=== PATIENT | female | born 1970 | race American Indian/Alaskan Native ===

== ENCOUNTER 2018-11-12 21:57 | Inpatient (IN) | payer MEDICAID ==
[2018-11-12 21:57] VITALS: BMI 18.4
[2018-11-12] MEDS ORDERED: Sodium Chloride 0.9% 1,000 ML IV ONE (23:05)
[2018-11-12] MEDS ORDERED: Sodium Chloride 0.9% 1,000 ML ONE (23:17)
[2018-11-12 23:24] LABS: BASO # 0.1 K/uL (0.0-0.2); HEMOGLOBIN 13.1 g/dL (11.0-16.0); MEAN CORPUSCULAR HGB CONC 33.8 g/dL (33.0-37.0); MONO # 0.9 K/uL (0.0-0.8); RBC 4.51 Mil/uL (3.80-5.20)
[2018-11-12 23:29] LABS: BASO % 0.9 % (0.0-2.0); EOS # 0.1 K/uL (0.0-0.7); EOS % 1.7 % (0.0-4.0); LYMPH # 3.1 K/uL (1.0-4.3); MEAN CELL VOLUME 86.2 fL (81.0-99.0); MEAN CORPUSCULAR HEMOGLOBIN 29.1 pg (27.0-31.0); MONO % 11.4 % (0.0-10.0); NEUT # 3.5 K/uL (1.8-7.0); NRBC % 0.2 % (0.0-2.0); RED CELL DISTRIBUTION WIDTH 14.4 % (11.5-14.5); WHITE BLOOD COUNT 7.7 K/uL (4.8-10.8)
--- NOTE | 2018-11-12 23:38 | C.PDOC ---
History Of Present Illness 48-year-old female is brought in by ambulance from residential at the insistence of her daughter for sacral decubitus ulcer for over a year. Patient has not spoken with her PMD Dr. Cooper. Patient's wound has been healing appropriately per wound care note, was last treated for this wound with antibiotics in July 2018. Patient is bedbound due to MS, CVA, history of cigarettes and cocaine abuse. Time Seen by Provider: 11/12/18 22:48 Chief Complaint (Nursing): Abnormal Skin Integrity History Per: Patient History/Exam Limitations: no limitations Onset/Duration Of Symptoms: Other (1 year) Current Symptoms Are (Timing): Still Present Location Of Injury: Posterior: Back Quality Of Symptoms: Other (ulcer) Past Medical History Reviewed: Historical Data, Nursing Documentation, Vital Signs Vital Signs: Last Vital Signs Temp 98.9 F 11/12/18 22:10 Pulse 103 H 11/12/18 22:10 Resp 20 11/12/18 22:10 BP 89/60 L 11/12/18 22:10 Pulse Ox 98 11/12/18 22:10 - Medical History PMH: Alzheimer's Disease, Arthritis, Asthma, COPD, CVA, Multiple Sclerosis, Seizures (Convulsions) Denies: Anemia, Anxiety, Bipolar Disorder, Bronchitis, Cardia Arrhythmia, CHF, Crohn's Disease, Dementia, Depression, Diverticulitis, Emphysema, Fibromyalgia, Fractures, Gastrointestinal Ulcer, Gall Bladder Disease, HIV, HTN, Hypercholesterolemia, Hyperthyroidism, Hypothyroidism, Kidney Stones, Migraine, Mitral Valve Prolapse, Osteoporosis, Pancreatitis, Paranoia, Parkinson's Disease, Peripheral Edema, Pneumonia, Post Traumatic Stress Disorder, Chronic Kidney Disease, Rheumatoid Arthritis, Schizophrenia, Sickle Cell Disease, Sexually Transmitted Disease, Sleep Apnea, TIA Surgical History: No Surg Hx Denies: Appendectomy, Cholecystectomy, Coronary Stent, Pacemaker - [facility] Procedures EXCISION OF LEFT HIP MUSCLE, OPEN APPROACH (10/31/15) INJECT/INFUSE NEC (08/13/14) INSERT INDWELLING CATH (08/13/14) Family History: States: No Known Family Hx - Social History Hx Tobacco Use: Yes Hx Alcohol Use: No (used to) Hx Substance Use: Yes (cocaine) - Immunization History Hx Tetanus Toxoid Vaccination: No Review Of Systems Except As Marked, All Systems Reviewed And Found Negative. Constitutional: Negative for: Fever, Chills Cardiovascular: Negative for: Chest Pain Respiratory: Negative for: Cough, Shortness of Breath Gastrointestinal: Negative for: Nausea, Vomiting, Abdominal Pain, Diarrhea Skin: Positive for: Other (ulcer) Physical Exam - Physical Exam Appears: Non-toxic, No Acute Distress, Other (contracted) Skin: Other (2x2cm sacral decubitus stage 3, no discharge/foul smell. Stage 1 decubitus ulcer to b/l buttocks. ) Head: Atraumatic, Normacephalic Eye(s): bilateral: Normal Inspection, PERRL, EOMI Nose: Normal Oral Mucosa: Moist Neck: Normal, Supple Chest: Symmetrical, No Tenderness Cardiovascular: Rhythm Regular, No Murmur Respiratory: Normal Breath Sounds, No Rales, No Rhonchi, No Wheezing Gastrointestinal/Abdominal: Soft, No Tenderness, No Guarding, No Rebound Neurological/Psych: Oriented x3 ED Course And Treatment - Laboratory Results Result Diagrams: 11/14/18 06:29 11/13/18 00:53 Lab Interpretation: Normal ECG: Interpreted By Me ECG Rhythm: Sinus Rhythm ECG Interpretation: Normal Rate From EC O2 Sat by Pulse Oximetry: 98 Pulse Ox Interpretation: Normal - Radiology CXR: Interpreted by [facility] CXR Interpretation: Yes: No Acute Disease Reevaluation Time: 00:00 Reassessment Condition: Improved - Physician Consult Information Outcome Of Conversation: [id number]: d/w Dr. Cooper, PMD, ok to admit. start rocephin Medical Decision Making Medical Decision Making: chronic decubitus ulcers, buttock approx > 1 year no acute infection no s/s of sepsis prior successful tx w rocephin/Keflex restarted per Dr. Cooper Plan: EKG Chemistry Hematology CXR NaCl IV Fluids Ultram 50mg PO Rocephin Blood Culture Urinalysis Disposition Doctor Will See Patient In The: Hospital Counseled Patient/Family Regarding: Studies Performed, Diagnosis - Disposition Disposition: HOSPITALIZED Disposition Time: 23:38 Condition: GOOD - Clinical Impression Clinical Impression: Decubitus skin ulcer - Scribe Statement The provider has reviewed the documentation as recorded by the Scribe (Navarro Altamirano) Provider Attestation: All medical record entries made by the Scribe were at my direction and personally dictated by me. I have reviewed the chart and agree that the record accurately reflects my personal performance of the history, physical exam, medical decision making, and the department course for this patient. I have also personally directed, reviewed, and agree with the discharge instructions and disposition.
[2018-11-12] MEDS ORDERED: cefTRIAXone IV 1 gm in Dextros 50 ML IV ONE (23:44)
[2018-11-12 23:49] LABS: INR 1.1; PROTHROMBIN TIME 11.9 SECONDS (9.7-12.2)
[2018-11-13 01:19] LABS: ALB/GLOB RATIO 0.9 (1.0-2.1); ALBUMIN 3.8 g/dL (3.5-5.0); ALT/SGPT 8 U/L (9-52); AST/SGOT 19 U/L (14-36); BLOOD UREA NITROGEN 11 mg/dL (7-17); CALCIUM 9.6 mg/dl (8.6-10.4); GFR NON-AFRICAN AMERICAN > 60
[2018-11-13] MEDS ORDERED: Albuterol-Ipratrop 3 mg / 0.5 (3 ml) UD IH PRN (06:24)
--- NOTE | 2018-11-13 08:25 | RAD ---
Chest x-ray single frontal view HISTORY: Bedsores. COMPARISON: None available. FINDINGS: No focal infiltrate or effusion. Tortuous ectatic aorta. Top normal heart size. Opacity projects over the bilateral heart, nonspecific, possibly external. Repeat study with dedicated PA and lateral view is recommended for further evaluation. Degenerative changes in the spine. Impression: Opacity projects over the bilateral heart, nonspecific, possibly external. Repeat study with dedicated PA and lateral view is recommended for further evaluation. No focal infiltrate or effusion. Tortuous ectatic aorta.
[2018-11-13] MEDS ORDERED: Pantoprazole 40 mg EC Tab PO SCH (10:00)
[2018-11-13] MEDS ORDERED: INTERFERON BETA 30 MCG IM SCH (10:00)
[2018-11-13] MEDS: Enoxaparin 40 mg Syringe SC SCH (10:07)
[2018-11-13] MEDS: Divalproex 125 mg DR Tab PO SCH ×2 (10:08→18:25)
[2018-11-13] MEDS: levETIRAcetam 100 mg/ml (5ml) Oral Syringe PO SCH ×2 (13:49→18:32)
[2018-11-13] MEDS: Valproic Acid 250 mg/5 ml UD Cup PO SCH (18:32)
[2018-11-14 02:57] LABS: SQUAMOUS EPITHIAL 16 /hpf (0-5); URINE BACTERIA RARE (<OCC)
[2018-11-14 02:59] LABS: URINE BILIRUBIN NEGATIVE (NEGATIVE); URINE CLARITY Clear (Clear); URINE COLOR YELLOW (YELLOW); URINE GLUCOSE (UA) NEGATIVE (Normal)
[2018-11-14 03:00] LABS: URINE BLOOD NEGATIVE (NEGATIVE); URINE LEUKOCYTE ESTERASE NEGATIVE Leu/uL (Negative); URINE PROTEIN NEGATIVE (NEGATIVE); URINE UROBILINOGEN 0.2 mg/dL (0.2-1.0)
--- NOTE | 2018-11-14 05:18 | HP ---
The patient is a 48-year-old female. The patient was seen and examined at the bedside on 11/13/2018. CHIEF COMPLAINT: Sacral decubitus ulcer. HISTORY OF PRESENT ILLNESS: Ms. Mariela Post is a 48-year-old female, resident of [facility], brought by the ambulance from [facility] at insistence of her daughter for sacral decubitus ulcer for over a year as per daughter. The patient has not spoken. The patient has language problem. The patient got antibiotic course in 07/2018. The patient has history of MS, CVA, history of smoking cocaine abuse, contracture of the lower extremities, history of seizures. PAST MEDICAL HISTORY: Dementia, arthritis, asthma, COPD, CVA, multiple sclerosis, seizures, convulsion, history of diverticulitis, emphysema, fibromyalgia. FAMILY HISTORY: Father and mother, noncontributory. As per daughter, the patient has one daughter and two sons. SOCIAL HISTORY: History of tobacco abuse. She has alcohol abuse. Substance abuse, used to use cocaine. REVIEW OF SYSTEMS: The patient is seen and examined at the bedside. Looking comfortable. No fever. No chills. No hematuria or hematochezia. No headache or dizziness. No chest pain. No palpitation. PHYSICAL EXAMINATION: VITAL SIGNS: Temperature 97.5, pulse 97, blood pressure 94/53, respiratory rate 20. HEENT: Head: Normocephalic and atraumatic. Eyes: PERRLA. Extraocular muscles intact. Conjunctivae clear. Nose patent. NECK: Supple. No carotid bruits, JVD, or thyromegaly. CHEST: Bilateral symmetrical. HEART: S1 and S2 positive. LUNGS: Clear to auscultation. ABDOMEN: Soft. Bowel sounds positive. No organomegaly. EXTREMITIES: Positive contracture in the lower extremities. No edema. No cyanosis. SKIN: Has 2 x 2 cm sacral decubitus ulcer, stage III in the center, and there is small decubitus ulcer found in the sides. No discharge or foul smelling stage I decubitus ulcers bilaterally. LABORATORY DATA: White blood cell 7.7, hemoglobin 13.1, hematocrit 38.9, platelets 270. Sodium 136, potassium 4.3, BUN 11, creatinine 0.6, glucose 81. ASSESSMENT AND PLAN: Ms. Mariela Post is a 48-year-old female with history of multiple sclerosis, dementia, arthritis, asthma, chronic obstructive pulmonary disease, cerebrovascular accident, seizures, convulsions. Resident of [facility]. Has decubitus ulcers. There is 2 x 2 cm sacral decubitus ulcer stage III. No discharge of foul smelling stage I decubitus ulcers bilaterally on the buttocks. Length of time discussion done with the patient's daughter on the bedside and nurse. The patient is seen by Infectious Disease, Dr. Kush Freeman. Would consult with the surgical team Dr. Ray. Restarted the patient on Aricept, ceftriaxone, Celebrex, valproic acid, Depakote, Avonex, Keppra, baclofen. The patient is getting Lovenox for deep venous thrombosis prophylaxis, Periactin, Protonix for gastrointestinal prophylaxis. Getting antibiotics, Rocephin. Repeat labs. We will follow up. Joanna Cooper MD
[2018-11-14 06:41] LABS: HEMOGLOBIN 13.5 g/dL (11.0-16.0); MEAN CELL VOLUME 86.4 fL (81.0-99.0); MEAN CORPUSCULAR HEMOGLOBIN 28.8 pg (27.0-31.0); MEAN CORPUSCULAR HGB CONC 33.3 g/dL (33.0-37.0); MEAN PLATELET VOLUME 9.2 fL (7.2-11.7); RBC 4.67 Mil/uL (3.80-5.20); RED CELL DISTRIBUTION WIDTH 14.4 % (11.5-14.5); WHITE BLOOD COUNT 7.7 K/uL (4.8-10.8)
--- NOTE | 2018-11-14 07:26 | CP.PCM.CON ---
<Adolfo Azar - Last Filed: 11/14/18 07:29> History of Present Illness - History of Present Illness History of Present Illness: Surgery: Dr. Ray Reason for consult: sacral wound HPI: Patient is a 48 y/ female with significant pmx for bedbound due to MS, CVA, altered mental status presents from long term at the request of daughter for evaluation of sacral wounds. Daughter not bedside at time of examine most of history obtained from chart. Per long term records, wound care nurse cares for sacral wounds. Patient has not exhibited signs of infection including fever, cough, sob, diarrhea. The wounds have been present for years and are usually covered with medihoney and mepilex. Per documentation, patient had prior debridement of sacral ulcer in 2016 but not required intervention since. PMH: MS, CVA, Chronic lower extremity contracture, Cocaine abuse, Epilepsy, and COPD, chonic sacral wounds PSH: sacral wound debridement in 2016 Social: NH, bedbound, immediate family is daughter. Prior history of tobacco and cocaine abuse. Review of Systems - Review of Systems Systems not reviewed;Unavailable: Altered Mental Status Past Patient History - Infectious Disease Hx of Infectious Diseases: None - Tetanus Immunizations Tetanus Immunization: Up to Date - Past Medical History & Family History Past Medical History?: Yes - Past Social History Smoking Status: Former Smoker - CARDIAC Hx Cardia Arrhythmia: No Hx Congestive Heart Failure: No Hx Hypercholesterolemia: No Hx Hypertension: No Hx Mitral Valve Prolapse: No Hx Pacemaker: No Hx Peripheral Edema: No - PULMONARY Hx Asthma: Yes Hx Bronchitis: No Hx Chronic Obstructive Pulmonary Disease (COPD): Yes Hx Emphysema: No Hx Pneumonia: No Hx Sleep Apnea: No - NEUROLOGICAL Hx Alzheimer's Disease: Yes Hx Dementia: No Hx Migraine: No Hx Multiple Sclerosis: Yes Hx Parkinson's Disease: No Hx Seizures: Yes (Convulsions) Hx Transient Ischemic Attacks (TIA): No - HEENT Hx HEENT Problems: No - RENAL Hx Chronic Kidney Disease: No Hx Kidney Stones: No - ENDOCRINE/METABOLIC Hx Hyperthyroidism: No Hx Hypothyroidism: No - HEMATOLOGICAL/ONCOLOGICAL Hx Anemia: No Hx Human Immunodeficiency Virus (HIV): No Hx Sickle Cell Disease: No - INTEGUMENTARY Hx Dermatological Problems: No - MUSCULOSKELETAL/RHEUMATOLOGICAL Hx Arthritis: Yes Hx Fractures: No Hx Osteoporosis: No Hx Rheumatoid Arthritis: No - GASTROINTESTINAL Hx Crohn's Disease: No Hx Diverticulitis: No Hx Gall Bladder Disease: No Hx Pancreatitis: No - GENITOURINARY/GYNECOLOGICAL Hx Sexually Transmitted Disorders: No - PSYCHIATRIC Hx Anxiety: No Hx Bipolar Disorder: No Hx Depression: No Hx Paranoia: No Hx Post Traumatic Stress Disorder: No Hx Schizophrenia: No Hx Substance Use: Yes (cocaine) - SURGICAL HISTORY Hx Appendectomy: No Hx Cholecystectomy: No Hx Coronary Stent: No Meds Allergies/Adverse Reactions: Allergies Allergy/AdvReac Type Severity Reaction Status Date / Time No Known Allergies Allergy Verified 11/12/18 22:08 - Medications Medications: Current Medications Acetaminophen (Tylenol 325mg Tab) 650 mg PO Q6H PRN PRN Reason: Pain, Mild (1-3) Albuterol/Ipratropium (Duoneb 3 Mg/0.5 Mg (3 Ml) Ud) 3 ml IH RQ6 PRN PRN Reason: Wheezing Baclofen (Lioresal) 10 mg PO QID [facility] Last Admin: 11/13/18 21:43 Dose: 10 mg Celecoxib (Celebrex) 100 mg PO BID PRN PRN Reason: Pain, moderate (4-7) Last Admin: 11/13/18 21:43 Dose: 100 mg Cyproheptadine HCl (Periactin) 4 mg PO DAILY [facility] Last Admin: 11/13/18 10:07 Dose: 4 mg Divalproex Sodium (Depakote Dr Tab) 125 mg PO BID [facility] Last Admin: 11/13/18 18:25 Dose: Not Given Donepezil HCl (Aricept) 10 mg PO HS [facility] Last Admin: 11/13/18 21:42 Dose: 10 mg Enoxaparin Sodium (Lovenox) 40 mg SC DAILY [facility] Last Admin: 11/13/18 10:07 Dose: 40 mg Ferrous Sulfate (Feosol) 325 mg PO DAILY [facility] Last Admin: 11/13/18 10:07 Dose: 325 mg Home Med (Interferon Beta-1a [Avonex]) 30 mcg IM QWK [facility] Ceftriaxone Sodium 1 gm/ (Sodium Chloride) 100 mls @ 100 mls/hr IVPB Q12H [facility]; Protocol Last Admin: 11/14/18 01:54 Dose: Not Given Levetiracetam (Keppra) 500 mg PO TID [facility] Last Admin: 11/13/18 18:32 Dose: 500 mg Pantoprazole Sodium (Protonix Susp) 40 mg PO DAILY [facility] Sennosides (Senokot Tab) 8.6 mg PO HS PRN PRN Reason: Constipation Valproate Sodium (Depakene Oral Soln) 125 mg PO BID [facility] Last Admin: 11/13/18 18:32 Dose: 125 mg Physical Exam - Constitutional Appears: Cachectic, Chronically Ill - Head Exam Head Exam: ATRAUMATIC, NORMOCEPHALIC - Eye Exam Eye Exam: EOMI - ENT Exam ENT Exam: Mucous Membranes Dry - Respiratory Exam Respiratory Exam: NORMAL BREATHING PATTERN. absent: Respiratory Distress - Cardiovascular Exam Cardiovascular Exam: REGULAR RHYTHM. absent: Tachycardia - Rectal Exam Additional comments: earle-anal skin tags - Extremities Exam Additional comments: LE contracted BL - Neurological Exam Neurological exam: Alert, Altered - Psychiatric Exam Psychiatric exam: Normal Affect - Skin Skin Exam: Dry, Warm - Additional Findings Additional findings: sacral ulcer approximately 3x3cm circumfrentially, depth uncertain due to presence of fibrin exudate skin edges appear healthy without evidence of tova necrosis no malodor or discharge inferior and lateral to above sacral wound are 2 stage 2 gluteal ulcers bilaterally Results - Vital Signs Recent Vital Signs: Last Vital Signs Temp 97.9 F 11/13/18 21:20 Pulse 87 11/13/18 21:20 Resp 20 11/13/18 21:20 BP 101/64 11/13/18 21:20 Pulse Ox 97 11/13/18 21:20 - Labs Result Diagrams: 11/14/18 06:29 11/13/18 00:53 Labs: Laboratory Results - last 24 hr 11/13/18 11/14/18 11/14/18 11:28 02:46 06:29 WBC RBC Hgb Hct MCV MCH MCHC RDW Plt Count MPV Triglycerides 172 H Cholesterol 163 HDL Cholesterol 34 Urine Color Yellow Urine Clarity Clear Urine pH 6.0 Ur Specific [place] 1.025 Urine Protein Negative Urine Glucose (UA) Negative Urine Ketones Negative Urine Blood Negative Urine Nitrate Negative Urine Bilirubin Negative Urine Urobilinogen 0.2 Ur Leukocyte Esterase Negative Urine WBC (Auto) 1 Urine RBC (Auto) 1 Ur Squamous Epith Cells 16 H Urine Bacteria Rare Valproic Acid 18.9 L 11/14/18 06:29 WBC 7.7 RBC 4.67 Hgb 13.5 Hct 40.3 MCV 86.4 MCH 28.8 MCHC 33.3 RDW 14.4 Plt Count 262 MPV 9.2 Triglycerides Cholesterol HDL Cholesterol Urine Color Urine Clarity Urine pH Ur Specific [place] Urine Protein Urine Glucose (UA) Urine Ketones Urine Blood Urine Nitrate Urine Bilirubin Urine Urobilinogen Ur Leukocyte Esterase Urine WBC (Auto) Urine RBC (Auto) Ur Squamous Epith Cells Urine Bacteria Valproic Acid Assessment & Plan - Assessment and Plan (Free Text) Assessment: 48 y/o female w/ sacral ulcer, unstagable Plan: -will plan for debridement of sacral ulcer today in [place] if daughter agreeable -NPO -IVFs -turn Q2 -air mattress if available -pressure point off loading -maximize nutrition for optimal healing -d/w Dr. Ray AKLansdale PGY4 <Dieudonne Ray B - Last Filed: 11/20/18 18:13> Meds - Medications Medications: Current Medications Acetaminophen (Tylenol 325mg Tab) 650 mg PO Q6H PRN PRN Reason: Pain, Mild (1-3) Last Admin: 11/16/18 17:53 Dose: 650 mg Albuterol/Ipratropium (Duoneb 3 Mg/0.5 Mg (3 Ml) Ud) 3 ml IH RQ6 PRN PRN Reason: Wheezing Baclofen (Lioresal) 10 mg PO QID [facility] Last Admin: 11/20/18 17:37 Dose: 10 mg Celecoxib (Celebrex) 100 mg PO BID PRN PRN Reason: Pain, moderate (4-7) Last Admin: 11/20/18 17:37 Dose: 100 mg Cyproheptadine HCl (Periactin) 4 mg PO DAILY [facility] Last Admin: 11/20/18 10:08 Dose: 4 mg Donepezil HCl (Aricept) 10 mg PO HS [facility] Last Admin: 11/19/18 22:02 Dose: 10 mg Enoxaparin Sodium (Lovenox) 40 mg SC DAILY [facility] Last Admin: 11/20/18 10:09 Dose: 40 mg Fenofibrate (Tricor) 145 mg PO QPM [facility] Last Admin: 11/20/18 17:36 Dose: 145 mg Ferrous Sulfate (Feosol) 325 mg PO DAILY [facility] Last Admin: 11/20/18 10:17 Dose: 325 mg Home Med (Interferon Beta-1a [Avonex]) 30 mcg IM QWK [facility] Piperacillin Sod/Tazobactam Sod (Zosyn 2.25 Gm Iv Premix) 2.25 gm in 50 mls @ 100 mls/hr IVPB Q6H [facility]; Protocol Last Admin: 11/20/18 14:05 Dose: 100 mls/hr Levetiracetam (Keppra) 500 mg PO TID [facility] Last Admin: 11/20/18 17:36 Dose: 500 mg Pantoprazole Sodium (Protonix Susp) 40 mg PO DAILY [facility] Last Admin: 11/20/18 10:17 Dose: 40 mg Sennosides (Senokot Tab) 8.6 mg PO HS PRN PRN Reason: Constipation Valproate Sodium (Depakene Oral Soln) 125 mg PO BID [facility] Last Admin: 11/20/18 17:37 Dose: 125 mg Results - Vital Signs Recent Vital Signs: Last Vital Signs Temp 98.0 F 11/20/18 15:30 Pulse 87 11/20/18 15:30 Resp 20 11/20/18 15:30 BP 97/64 L 11/20/18 15:30 Pulse Ox 98 11/20/18 15:30 - Labs Result Diagrams: 11/18/18 07:02 11/18/18 07:02 Attending/Attestation - Attestation I have personally seen and examined this patient.: Yes I have fully participated in the care of the patient.: Yes I have reviewed all pertinent clinical information: Yes Notes (Text): Pt was seen and examined at bedside Agree with above note and assessment Pt with MS with Contracture of LE with sacral and Hip ulcers Sacral area: Stage 3 ulcer, Hip ulcers are well healed. Labs and radiology reviewe Ass: Infected sacral ulcer with MS Plan : OR for Sacral ulcer debridement and Wound vac placement consent from daughter NPO, IVF c.w current mx IV antibiotics Plan d.w pt in detail Risk and benefit explained in detail.
[2018-11-14 08:29] LABS: FOLATE 7.7 ng/mL
--- NOTE | 2018-11-14 11:30 | CP.PCM.CON ---
History of Present Illness - History of Present Illness History of Present Illness: INFECTIOUS DISEASE CONSULT Reason for consult: sacral wound HPI: HISTORY OBTAINED FROM THE CHART PATIENT UNABLE TO GIVE ANY DETAILS. Patient is a 48 y/ female with significant pmx for bedbound due to MS, CVA, [facility] of sacral wounds. Daughter not bedside at time of examine most of history obtained from chart. Per care home records, wound care nurse cares for sacral wounds. Patient has not exhibited signs of infection including fever, cough, sob, diarrhea. The wounds have been present for years and are usually covered with medihoney and mepilex. Per documentation, patient had prior debridement of sacral ulcer in 2016 but not required intervention since. INFECTIOUS DISEASE CONSULT REQUESTED BY PMD FOR SACRAL DECUBITUS ULCERS. PATIENT WAS PLACED ON IV ROCEPHIN 1 G ONCE A DAY DAILY BY THE PMD DR CARTER. PT S/P DEBRIDEMENT TODAY 11/14/18. SEEN POST OPTIVELY. PMH: MS, CVA, Chronic lower extremity contracture, Cocaine abuse, Epilepsy, and COPD, chonic sacral wounds PSH: sacral wound debridement in 2016 Social: ID, bedbound, immediate family is daughter. Prior history of tobacco and cocaine abuse. ALLERGY; NKA. - [facility] Procedures EXCISION OF LEFT HIP MUSCLE, OPEN APPROACH (10/31/15) INJECT/INFUSE NEC (08/13/14) INSERT INDWELLING CATH (08/13/14) Family History: States: No Known Family Hx - Social History Hx Tobacco Use: Yes Hx Alcohol Use: No (used to) Hx Substance Use: Yes (cocaine) - Immunization History Hx Tetanus Toxoid Vaccination: No Review Of Systems Except As Marked, All Systems Reviewed And Found Negative. Review of Systems - Constitutional Constitutional: absent: Chills, Fever - EENT Eyes: absent: Change in Vision Nose/Mouth/Throat: absent: Mouth Lesions - Cardiovascular Cardiovascular: absent: Chest Pain, Dyspnea, Pedal Edema - Respiratory Respiratory: absent: Cough - Gastrointestinal Gastrointestinal: Nausea. absent: Abdominal Pain, Odynophagia - Genitourinary Genitourinary: Urinary Incontinence - Neurological Neurological: Abnormal Gait, Dizziness - Hematologic/Lymphatic Hematologic: As Per HPI. absent: Easy Bleeding, Lymphadenopathy Past Patient History - Infectious Disease Hx of Infectious Diseases: None - Tetanus Immunizations Tetanus Immunization: Up to Date - Past Medical History & Family History Past Medical History?: Yes - Past Social History Smoking Status: Former Smoker - CARDIAC Hx Cardia Arrhythmia: No Hx Congestive Heart Failure: No Hx Hypercholesterolemia: No Hx Hypertension: No Hx Mitral Valve Prolapse: No Hx Pacemaker: No Hx Peripheral Edema: No - PULMONARY Hx Asthma: Yes Hx Bronchitis: No Hx Chronic Obstructive Pulmonary Disease (COPD): Yes Hx Emphysema: No Hx Pneumonia: No Hx Sleep Apnea: No - NEUROLOGICAL Hx Alzheimer's Disease: Yes Hx Dementia: No Hx Migraine: No Hx Multiple Sclerosis: Yes Hx Parkinson's Disease: No Hx Seizures: Yes (Convulsions) Hx Transient Ischemic Attacks (TIA): No - HEENT Hx HEENT Problems: No - RENAL Hx Chronic Kidney Disease: No Hx Kidney Stones: No - ENDOCRINE/METABOLIC Hx Hyperthyroidism: No Hx Hypothyroidism: No - HEMATOLOGICAL/ONCOLOGICAL Hx Anemia: No Hx Human Immunodeficiency Virus (HIV): No Hx Sickle Cell Disease: No - INTEGUMENTARY Hx Dermatological Problems: No - MUSCULOSKELETAL/RHEUMATOLOGICAL Hx Arthritis: Yes Hx Fractures: No Hx Osteoporosis: No Hx Rheumatoid Arthritis: No - GASTROINTESTINAL Hx Crohn's Disease: No Hx Diverticulitis: No Hx Gall Bladder Disease: No Hx Pancreatitis: No - GENITOURINARY/GYNECOLOGICAL Hx Sexually Transmitted Disorders: No - PSYCHIATRIC Hx Anxiety: No Hx Bipolar Disorder: No Hx Depression: No Hx Paranoia: No Hx Post Traumatic Stress Disorder: No Hx Schizophrenia: No Hx Substance Use: Yes (cocaine) - SURGICAL HISTORY Hx Appendectomy: No Hx Cholecystectomy: No Hx Coronary Stent: No Meds Allergies/Adverse Reactions: Allergies Allergy/AdvReac Type Severity Reaction Status Date / Time No Known Allergies Allergy Verified 11/12/18 22:08 - Medications Medications: Current Medications Acetaminophen (Tylenol 325mg Tab) 650 mg PO Q6H PRN PRN Reason: Pain, Mild (1-3) Albuterol/Ipratropium (Duoneb 3 Mg/0.5 Mg (3 Ml) Ud) 3 ml IH RQ6 PRN PRN Reason: Wheezing Baclofen (Lioresal) 10 mg PO QID [place] Last Admin: 11/13/18 21:43 Dose: 10 mg Celecoxib (Celebrex) 100 mg PO BID PRN PRN Reason: Pain, moderate (4-7) Last Admin: 11/13/18 21:43 Dose: 100 mg Cyproheptadine HCl (Periactin) 4 mg PO DAILY [facility] Last Admin: 11/13/18 10:07 Dose: 4 mg Divalproex Sodium (Depakote Dr Tab) 125 mg PO BID [facility] Last Admin: 11/13/18 18:25 Dose: Not Given Donepezil HCl (Aricept) 10 mg PO HS [facility] Last Admin: 11/13/18 21:42 Dose: 10 mg Enoxaparin Sodium (Lovenox) 40 mg SC DAILY [facility] Last Admin: 11/13/18 10:07 Dose: 40 mg Ferrous Sulfate (Feosol) 325 mg PO DAILY [facility] Last Admin: 11/13/18 10:07 Dose: 325 mg Home Med (Interferon Beta-1a [Avonex]) 30 mcg IM QWK [facility] Ceftriaxone Sodium 1 gm/ (Sodium Chloride) 100 mls @ 100 mls/hr IVPB Q12H [facility]; Protocol Last Admin: 11/14/18 01:54 Dose: Not Given Sodium Chloride (Sodium Chloride 0.9%) 1,000 mls @ 80 mls/hr IV .[id number] [facility] Levetiracetam (Keppra) 500 mg PO TID [facility] Last Admin: 11/13/18 18:32 Dose: 500 mg Pantoprazole Sodium (Protonix Susp) 40 mg PO DAILY [facility] Pneumococcal Polyvalent Vaccine (Pneumovax 23 Vaccine) 0.5 ml IM .ONCE ONE Stop: 11/15/18 10:01 Sennosides (Senokot Tab) 8.6 mg PO HS PRN PRN Reason: Constipation Valproate Sodium (Depakene Oral Soln) 125 mg PO BID [facility] Last Admin: 11/13/18 18:32 Dose: 125 mg Physical Exam - Constitutional Appears: No Acute Distress, Cachectic, Chronically Ill - Head Exam Head Exam: NORMAL INSPECTION - Eye Exam Eye Exam: PERRL - ENT Exam ENT Exam: Normal Oropharynx - Neck Exam Neck exam: Positive for: Normal Inspection - Respiratory Exam Respiratory Exam: Clear to Auscultation Bilateral, NORMAL BREATHING PATTERN - Cardiovascular Exam Cardiovascular Exam: REGULAR RHYTHM, +S1, +S2 - GI/Abdominal Exam GI & Abdominal Exam: Normal Bowel Sounds, Soft - Extremities Exam Extremities exam: Positive for: pedal pulses present. Negative for: calf tenderness, pedal edema - Back Exam Back exam: CVA tenderness (R). absent: CVA tenderness (L) - Neurological Exam Neurological exam: Alert, CN II-XII Intact - Psychiatric Exam Psychiatric exam: Normal Mood - Skin Skin Exam: Dry (S/P DEBRIDEMENT TODAY. WOUND VAC IN PLACE.), Normal Color, Warm Results - Vital Signs Recent Vital Signs: Last Vital Signs Temp 98.2 F 11/14/18 07:00 Pulse 90 11/14/18 07:00 Resp 20 11/14/18 07:00 BP 104/72 11/14/18 07:00 Pulse Ox 98 11/14/18 10:21 - Labs Result Diagrams: 11/14/18 06:29 11/13/18 00:53 Labs: Laboratory Results - last 24 hr 11/13/18 11/14/18 11/14/18 11:28 02:46 06:29 WBC RBC Hgb Hct MCV MCH MCHC RDW Plt Count MPV NT-Pro-B Natriuret Pep 40.0 Triglycerides 172 H Cholesterol 163 LDL Cholesterol Direct 93 HDL Cholesterol 34 Vitamin B12 832 Folate 7.7 TSH 3rd Generation 0.75 Urine Color Yellow Urine Clarity Clear Urine pH 6.0 Ur Specific [place] 1.025 Urine Protein Negative Urine Glucose (UA) Negative Urine Ketones Negative Urine Blood Negative Urine Nitrate Negative Urine Bilirubin Negative Urine Urobilinogen 0.2 Ur Leukocyte Esterase Negative Urine WBC (Auto) 1 Urine RBC (Auto) 1 Ur Squamous Epith Cells 16 H Urine Bacteria Rare Valproic Acid 18.9 L 11/14/18 06:29 WBC 7.7 RBC 4.67 Hgb 13.5 Hct 40.3 MCV 86.4 MCH 28.8 MCHC 33.3 RDW 14.4 Plt Count 262 MPV 9.2 NT-Pro-B Natriuret Pep Triglycerides Cholesterol LDL Cholesterol Direct HDL Cholesterol Vitamin B12 Folate TSH 3rd Generation Urine Color Urine Clarity Urine pH Ur Specific [place] Urine Protein Urine Glucose (UA) Urine Ketones Urine Blood Urine Nitrate Urine Bilirubin Urine Urobilinogen Ur Leukocyte Esterase Urine WBC (Auto) Urine RBC (Auto) Ur Squamous Epith Cells Urine Bacteria Valproic Acid - Imaging and Cardiology Chest x-ray Status: Report reviewed by me (no focal infiltrates or effusion..) Assessment & Plan (1) Decubitus skin ulcer Assessment and Plan: PANCULTURE WOUND CULTURE.-P UA/URINE CULURE. CONTINUE iv rOCEPHIN 1 G EVERY 12 HOURLY 11/13/18. fOLLOW-UP WOUND CULTURES TO ADJUST ANTIBIOTICS. sURGERY ON BOARD ! S/P I & D TODAY 11/14/18 WE WILL FOLLOW ALONG WITH YOU. tHANK YOU. Status: Acute (2) Altered mental status Assessment and Plan: MORE RESPONSIVE TODAY UNABLE TO GUESS HER MENTAL STATUS. iF IT BASELINE OR WORSENING. WILL DISCUSS WITH FAMILY MEMBER /AND ATTENDING. Status: Acute Priority: High (3) CVA (cerebral vascular accident) Assessment and Plan: HISTORY OF OLD CVA, WITH CONTRACTURES. pATIENT UNABLE TO GIVE ANY DETAILS. Status: Acute
[2018-11-14] MEDS: Sodium Chloride 0.9% 1,000 ML IV SCH ×2 (12:57→20:27)
[2018-11-14] MEDS: Valproic Acid 250 mg/5 ml UD Cup PO SCH ×2 (13:37→18:04)
[2018-11-14] MEDS: levETIRAcetam 100 mg/ml (5ml) Oral Syringe PO SCH ×3 (13:37→18:04)
[2018-11-14] MEDS: Divalproex 125 mg DR Tab PO SCH ×2 (13:37→18:09)
[2018-11-14] MEDS: Pantoprazole 40 mg Susp UD PO SCH (13:37)
[2018-11-14] MEDS ORDERED: Midazolam 2 MG/2 ML VIAL ONE ×2 (16:15)
[2018-11-14] MEDS ORDERED: Bupivacaine 0.25% 20 ML INJ IJ ONE (16:16)
[2018-11-14] MEDS ORDERED: Lidocaine/Epinephrine 1% 1:100000 10 ML IJ ONE (16:16)
[2018-11-14] MEDS ORDERED: INTERFERON BETA 30 MCG IM SCH (19:00)
--- NOTE | 2018-11-14 22:12 | PN ---
DATE: 11/14/2018 SUBJECTIVE: The patient is a 48-year-old female. The patient was seen and examined at the bedside on 11/14/2018. The patient was seen before OR, looking comfortable. No fever, no chills, no hematuria, and no hematochezia. No headache or dizziness. No chest pain. No palpitation. PHYSICAL EXAMINATION: VITAL SIGNS: Temperature 97.9, pulse 87, respiratory rate 20, blood pressure 101/54. HEENT: Head is normocephalic and atraumatic. Eyes: PERRLA. Extraocular movements are intact. Conjunctivae clear. Nose patent. Mucous membranes moist. NECK: Supple. No carotid bruits. No JVD or thyromegaly. CHEST: Bilaterally symmetrical. HEART: S1, S2 positive. LUNGS: Clear to auscultation. ABDOMEN: Soft. Bowel sounds present. No organomegaly. EXTREMITIES: No edema. No cyanosis. NEUROLOGIC: The patient is awake and alert. Lower extremities have contractures. SKIN: The patient has approximately 3 cm circumferentially depth, uncertain due to presence of fibrin exudate, skin edges appears healthy without evidence of tova necrosis. No malodorous discharge. Inferior and lateral to above sacral wound are stage 2 gluteal ulcers bilaterally. LABORATORY DATA: White blood cells 7.7, hemoglobin 13.5, hematocrit 40.3, platelets 262, sodium 136, potassium 4.3, BUN 11, creatinine 0.6, and glucose 81. ASSESSMENT AND PLAN: Ms. Sejal Sierra is a 48-year-old lady with sacral decubitus ulcers, unstageable, referred to operative room. Air mattress, we will try to get for her, pressure point offload. Appreciate Dr. Ray's input. The patient has history of multiple sclerosis, cerebrovascular accident, history of seizures, came for sacral decubitus ulcers, Surgery, ID, and Neurology is on the case, history of smoking, chronic obstructive pulmonary disease, dementia, and arthritis. We will continue antibiotics as per Infectious Disease. Wound care as per surgeon. Repeat labs. We will follow up. Joanna Cooper MD [facility] # [phone]
--- NOTE | 2018-11-15 04:30 | OP ---
PROCEDURE DATE: 11/14/2018 PREOPERATIVE DIAGNOSIS: Stage III sacral decubitus ulcer and stage I hip ulcer. POSTOPERATIVE DIAGNOSIS: Stage III sacral decubitus ulcer and well-healed hip ulcer. PROCEDURES DONE: 1. Excisional debridement of the sacral decubitus ulcer. It was 3 x 3 x 2 cm size. 2. Negative pressure wound vacuum-assisted closure therapy, 3 x 2 x 2 cm size. ANESTHESIA: Local anesthesia plus sedation. ESTIMATED BLOOD LOSS: Around 5 mL. DRAIN: The wound VAC was placed at the drain. COMPLICATIONS: None. INTRAOPERATIVE FINDINGS: The patient had approximately 3 x 3 x 2 cm size stage III sacral decubitus ulcer. DESCRIPTION OF THE PROCEDURE: On intraoperative steps, this is a 48-year-old female who was diagnosed with multiple sclerosis, and the patient is retirement bound, and the patient had a sacral ulcer as well as a hip ulcer. The patient's family was consented for sacral ulcer debridement. Brought to the OR, placed in the lateral position. The sacral and the hip area was prepped and draped in the usual sterile fashion. The hip area was well healed, and the sacral ulcer was debrided excisionally with blunt and sharp dissection and the wound was irrigated. Hemostasis was achieved. The negative pressure wound VAC therapy was applied, and dry sterile dressing was applied. The patient tolerated the procedure well. Count of instrument and gauze was correct. There was no apparent complication. The patient was extubated to OR, sent to the postanesthesia care unit in stable condition. Dieudonne Ray MD
--- NOTE | 2018-11-15 07:50 | PCM.SURG1 ---
Surgeon's Initial Post Op Note - Surgeon's Notes Surgeon: Dr. Ray Liquor Department Manager: PGY2 Type of Anesthesia: IV Sedation, Local Anesthesia Administered By: Dr. Starr Pre-Operative Diagnosis: Stage III sacral Decubitus Ulcer Operative Findings: Stage III sacral ulcer. For Details see op note Post-Operative Diagnosis: As above Operation Performed: 1. Sacral Debridement of skin, soft tissue, and muscle. 2. Fecal Disimpaction Specimen/Specimens Removed: none Estimated Blood Loss: EBL {In ML}: 5 Blood Products Given: N/A Drains Used: Wound Vac Post-Op Condition: Fair Date of Surgery/Procedure: 11/14/18 Time of Surgery/Procedure: 18:30
--- NOTE | 2018-11-15 07:56 | CP.PCM.PN ---
<Flip Garcia - Last Filed: 11/15/18 07:50> Subjective - Date & Time of Evaluation Date of Evaluation: 11/15/18 Time of Evaluation: 07:50 - Subjective Subjective: Surgery Progress Note- Dr. Ray Patient S&E at bedside. No acute events overnight. Patient has wound vac in place w/ no air leak detected. Patient incontinent w/ attempt at purewick placement. No F/C/CP/SOB Objective - Vital Signs/Intake and Output Vital Signs (last 24 hours): Temp Pulse Resp BP Pulse Ox 97.8 F 93 H 20 99/68 L 99 11/14/18 23:38 11/14/18 23:38 11/14/18 23:38 11/14/18 23:38 11/14/18 23:38 Intake and Output: 11/15/18 11/15/18 06:59 18:59 Intake Total 820 Balance 820 - Medications Medications: Current Medications Acetaminophen (Tylenol 325mg Tab) 650 mg PO Q6H PRN PRN Reason: Pain, Mild (1-3) Last Admin: 11/14/18 21:03 Dose: 650 mg Albuterol/Ipratropium (Duoneb 3 Mg/0.5 Mg (3 Ml) Ud) 3 ml IH RQ6 PRN PRN Reason: Wheezing Baclofen (Lioresal) 10 mg PO QID [facility] Last Admin: 11/14/18 21:03 Dose: 10 mg Celecoxib (Celebrex) 100 mg PO BID PRN PRN Reason: Pain, moderate (4-7) Last Admin: 11/13/18 21:43 Dose: 100 mg Cyproheptadine HCl (Periactin) 4 mg PO DAILY [facility] Last Admin: 11/14/18 13:37 Dose: Not Given Divalproex Sodium (Depakote Dr Tab) 125 mg PO BID [facility] Last Admin: 11/14/18 18:09 Dose: 125 mg Donepezil HCl (Aricept) 10 mg PO HS [facility] Last Admin: 11/14/18 21:03 Dose: 10 mg Enoxaparin Sodium (Lovenox) 40 mg SC DAILY [facility] Last Admin: 11/13/18 10:07 Dose: 40 mg Fenofibrate (Tricor) 145 mg PO QPM [facility] Ferrous Sulfate (Feosol) 325 mg PO DAILY [facility] Last Admin: 11/14/18 13:37 Dose: Not Given Home Med (Interferon Beta-1a [Avonex]) 30 mcg IM QWK [facility] Ceftriaxone Sodium 1 gm/ (Sodium Chloride) 100 mls @ 100 mls/hr IVPB Q12H [facility]; Protocol Last Admin: 11/15/18 02:00 Dose: 100 mls/hr Sodium Chloride (Sodium Chloride 0.9%) 1,000 mls @ 80 mls/hr IV .[id number] [facility] Last Admin: 11/14/18 20:27 Dose: Not Given Levetiracetam (Keppra) 500 mg PO TID [facility] Last Admin: 11/14/18 18:04 Dose: 500 mg Pantoprazole Sodium (Protonix Susp) 40 mg PO DAILY [facility] Last Admin: 11/14/18 13:37 Dose: Not Given Pneumococcal Polyvalent Vaccine (Pneumovax 23 Vaccine) 0.5 ml IM .ONCE ONE Stop: 11/15/18 10:01 Sennosides (Senokot Tab) 8.6 mg PO HS PRN PRN Reason: Constipation Valproate Sodium (Depakene Oral Soln) 125 mg PO BID [facility] Last Admin: 11/14/18 18:04 Dose: 125 mg - Labs Labs: 11/14/18 06:29 11/13/18 00:53 PT 11.9 SECONDS (9.7-12.2) 11/12/18 23:35 INR 1.1 11/12/18 23:35 APTT 30 SECONDS (21-34) 11/12/18 23:35 - Constitutional Appears: No Acute Distress, Chronically Ill - Head Exam Head Exam: ATRAUMATIC - Eye Exam Eye Exam: EOMI. absent: Scleral icterus - ENT Exam ENT Exam: Mucous Membranes Moist - Respiratory Exam Respiratory Exam: Clear to Ausculation Bilateral. absent: Accessory Muscle Use, Respiratory Distress - Cardiovascular Exam Cardiovascular Exam: REGULAR RHYTHM. absent: Bradycardia, Tachycardia - GI/Abdominal Exam GI & Abdominal Exam: Soft. absent: Distended, Firm, Guarding, Tenderness - Extremities Exam Additional comments: sacral wound vac in place, no air leak detected - Neurological Exam Neurological Exam: absent: Oriented x3 - Psychiatric Exam Psychiatric exam: Normal Affect - Skin Skin Exam: Intact, Warm Assessment and Plan - Assessment and Plan (Free Text) Assessment: 48F w/ Stage III sacral decub s/p Debridement and wound vac placement POD#1 Plan: - plan for wound vac change on POD3 - continued medical management per primary team - will continue to follow - d/w Dr. Cory Garcia PGY2 <Dieudonne Ray - Last Filed: 11/20/18 18:15> Objective - Vital Signs/Intake and Output Vital Signs (last 24 hours): Temp Pulse Resp BP Pulse Ox 98.0 F 87 20 97/64 L 98 11/20/18 15:30 11/20/18 15:30 11/20/18 15:30 11/20/18 15:30 11/20/18 15:30 Intake and Output: 11/20/18 11/20/18 06:59 18:59 Intake Total 340 Output Total 651 600 Balance -311 -600 - Medications Medications: Current Medications Acetaminophen (Tylenol 325mg Tab) 650 mg PO Q6H PRN PRN Reason: Pain, Mild (1-3) Last Admin: 11/16/18 17:53 Dose: 650 mg Albuterol/Ipratropium (Duoneb 3 Mg/0.5 Mg (3 Ml) Ud) 3 ml IH RQ6 PRN PRN Reason: Wheezing Baclofen (Lioresal) 10 mg PO QID [facility] Last Admin: 11/20/18 17:37 Dose: 10 mg Celecoxib (Celebrex) 100 mg PO BID PRN PRN Reason: Pain, moderate (4-7) Last Admin: 11/20/18 17:37 Dose: 100 mg Cyproheptadine HCl (Periactin) 4 mg PO DAILY [facility] Last Admin: 11/20/18 10:08 Dose: 4 mg Donepezil HCl (Aricept) 10 mg PO HS [facility] Last Admin: 11/19/18 22:02 Dose: 10 mg Enoxaparin Sodium (Lovenox) 40 mg SC DAILY [facility] Last Admin: 11/20/18 10:09 Dose: 40 mg Fenofibrate (Tricor) 145 mg PO QPM [facility] Last Admin: 11/20/18 17:36 Dose: 145 mg Ferrous Sulfate (Feosol) 325 mg PO DAILY [facility] Last Admin: 11/20/18 10:17 Dose: 325 mg Home Med (Interferon Beta-1a [Avonex]) 30 mcg IM QWK [facility] Piperacillin Sod/Tazobactam Sod (Zosyn 2.25 Gm Iv Premix) 2.25 gm in 50 mls @ 100 mls/hr IVPB Q6H [facility]; Protocol Last Admin: 11/20/18 14:05 Dose: 100 mls/hr Levetiracetam (Keppra) 500 mg PO TID [facility] Last Admin: 11/20/18 17:36 Dose: 500 mg Pantoprazole Sodium (Protonix Susp) 40 mg PO DAILY [facility] Last Admin: 11/20/18 10:17 Dose: 40 mg Sennosides (Senokot Tab) 8.6 mg PO HS PRN PRN Reason: Constipation Valproate Sodium (Depakene Oral Soln) 125 mg PO BID [facility] Last Admin: 11/20/18 17:37 Dose: 125 mg - Labs Labs: 11/18/18 07:02 11/18/18 07:02 PT 11.9 SECONDS (9.7-12.2) 11/12/18 23:35 INR 1.1 11/12/18 23:35 APTT 30 SECONDS (21-34) 11/12/18 23:35 Attending/Attestation - Attestation I have personally seen and examined this patient.: Yes I have fully participated in the care of the patient.: Yes I have reviewed all pertinent clinical information, including history, physical exam and plan: Yes Notes (Text): Pt was seen and examined at bedside Agree with above note and assessment Pt is s/p debridement of sacral ulcer. Wound vac is functioning DC plan c.w current mx Plan d.w pt and primary team
[2018-11-15] MEDS ORDERED: Pneumococcal 23-Valent Vaccine IM ONE (10:00)
[2018-11-15] MEDS: Pantoprazole 40 mg Susp UD PO SCH (10:11)
[2018-11-15] MEDS: levETIRAcetam 100 mg/ml (5ml) Oral Syringe PO SCH ×3 (10:11→18:39)
[2018-11-15] MEDS: Divalproex 125 mg DR Tab PO SCH ×2 (10:13→18:40)
[2018-11-15] MEDS: Enoxaparin 40 mg Syringe SC SCH (10:13)
[2018-11-15] MEDS: Valproic Acid 250 mg/5 ml UD Cup PO SCH ×2 (10:14→18:39)
--- NOTE | 2018-11-15 15:26 | CARD ---
APPROVED REPORT Date of service: 11/12/2018 EKG Measurement Heart [id number] <Conclusion> Normal sinus rhythm Anterior infarct, age undetermined Abnormal ECG
[2018-11-15] MEDS: Sodium Chloride 0.9% 1,000 ML IV SCH (21:52)
--- NOTE | 2018-11-15 23:22 | CP.PCM.PN ---
Subjective - Date & Time of Evaluation Date of Evaluation: 11/15/18 Time of Evaluation: 23:22 - Subjective Subjective: AFEBRILE POD # 1 S/P I&D SACRAL DECUBITUS ULCERS. ON WOUND VAC. FAMILY AT BEDSIDE LABS; REVIEWED WOUND CULTURE - P Objective - Vital Signs/Intake and Output Vital Signs (last 24 hours): Temp Pulse Resp BP Pulse Ox 97.8 F 88 20 103/68 99 11/15/18 15:00 11/15/18 15:00 11/15/18 15:00 11/15/18 15:00 11/15/18 15:00 - Medications Medications: Current Medications Acetaminophen (Tylenol 325mg Tab) 650 mg PO Q6H PRN PRN Reason: Pain, Mild (1-3) Last Admin: 11/14/18 21:03 Dose: 650 mg Albuterol/Ipratropium (Duoneb 3 Mg/0.5 Mg (3 Ml) Ud) 3 ml IH RQ6 PRN PRN Reason: Wheezing Baclofen (Lioresal) 10 mg PO QID [facility] Last Admin: 11/15/18 22:57 Dose: Not Given Celecoxib (Celebrex) 100 mg PO BID PRN PRN Reason: Pain, moderate (4-7) Last Admin: 11/15/18 18:39 Dose: 100 mg Cyproheptadine HCl (Periactin) 4 mg PO DAILY [facility] Last Admin: 11/15/18 10:11 Dose: 4 mg Divalproex Sodium (Depakote Dr Tab) 125 mg PO BID [facility] Last Admin: 11/15/18 18:40 Dose: 125 mg Donepezil HCl (Aricept) 10 mg PO HS [facility] Last Admin: 11/15/18 22:57 Dose: Not Given Enoxaparin Sodium (Lovenox) 40 mg SC DAILY [facility] Last Admin: 11/15/18 10:13 Dose: 40 mg Fenofibrate (Tricor) 145 mg PO QPM [facility] Last Admin: 11/15/18 18:38 Dose: 145 mg Ferrous Sulfate (Feosol) 325 mg PO DAILY [facility] Last Admin: 11/15/18 10:11 Dose: 325 mg Home Med (Interferon Beta-1a [Avonex]) 30 mcg IM QWK [facility] Ceftriaxone Sodium 1 gm/ (Sodium Chloride) 100 mls @ 100 mls/hr IVPB Q12H [facility]; Protocol Last Admin: 11/15/18 13:42 Dose: 100 mls/hr Sodium Chloride (Sodium Chloride 0.9%) 1,000 mls @ 80 mls/hr IV .[id number] [facility] Last Admin: 11/15/18 21:52 Dose: Not Given Levetiracetam (Keppra) 500 mg PO TID [facility] Last Admin: 11/15/18 18:39 Dose: 500 mg Pantoprazole Sodium (Protonix Susp) 40 mg PO DAILY [facility] Last Admin: 11/15/18 10:11 Dose: 40 mg Sennosides (Senokot Tab) 8.6 mg PO HS PRN PRN Reason: Constipation Valproate Sodium (Depakene Oral Soln) 125 mg PO BID [facility] Last Admin: 11/15/18 18:39 Dose: 125 mg - Labs Labs: 11/14/18 06:29 11/13/18 00:53 PT 11.9 SECONDS (9.7-12.2) 11/12/18 23:35 INR 1.1 11/12/18 23:35 APTT 30 SECONDS (21-34) 11/12/18 23:35 - Constitutional Appears: No Acute Distress, Chronically Ill - Head Exam Head Exam: NORMAL INSPECTION - Eye Exam Eye Exam: EOMI, PERRL - ENT Exam ENT Exam: Normal Oropharynx - Neck Exam Neck Exam: Normal Inspection - Respiratory Exam Respiratory Exam: NORMAL BREATHING PATTERN - Cardiovascular Exam Cardiovascular Exam: REGULAR RHYTHM, +S1, +S2 - GI/Abdominal Exam GI & Abdominal Exam: Soft, Normal Bowel Sounds - Extremities Exam Extremities Exam: absent: Calf Tenderness, Pedal Edema - Neurological Exam Neurological Exam: Awake, CN II-XII Intact, Oriented x3 - Psychiatric Exam Psychiatric exam: Normal Mood - Skin Skin Exam: Normal Color, Warm Assessment and Plan (1) Decubitus skin ulcer Status: Acute (2) Altered mental status Status: Acute (3) CVA (cerebral vascular accident) Status: Acute - Assessment and Plan (Free Text) Plan: CONTINUE iv ROCEPHIN 1 G EVERY 12 HOURLY 11/13/18. fOLLOW-UP WOUND CULTURES TO ADJUST ANTIBIOTICS. ATTEMPTING TO PUT PUREWIK PT INCONTINENT SURGERY ON BOARD ! S/P I & D - 11/14/18
--- NOTE | 2018-11-16 01:16 | PN ---
DATE: 11/15/2018 SUBJECTIVE: The patient is a 48-year-old female. The patient was seen and examined at the bedside on 11/15/2018, looking comfortable, having a wound VAC, status post debridement. No event happened overnight. No air leak from the wound VAC detected. The patient is continent. We will attempt Pleur-evac placement. No fever, no chills, no hematuria, no hematochezia. PHYSICAL EXAMINATION: VITAL SIGNS: Temperature 97.8, pulse 93, respiratory rate 20, blood pressure 99/58, and pulse oxymetry 99%. HEENT: Head; normocephalic, atraumatic. Eyes; PERRLA. Extraocular movements are intact. Conjunctivae are clear. Nose is patent. Mucous membranes are moist. NECK: Supple. No carotid bruits. No JVD or thyromegaly. CHEST: Bilaterally symmetrical. HEART: S1, S2 positive. LUNGS: Clear to auscultation. ABDOMEN: Soft. Bowel sounds present. No organomegaly. EXTREMITIES: No edema. No cyanosis. NEUROLOGIC: The patient is awake and alert. Follows simple commands. MEDICATIONS: Tylenol, albuterol, baclofen, Celebrex, Periactin, Aricept, Lovenox, TriCor, NS, Keppra, pantoprazole, valproic acid. LABORATORY DATA: White blood cell 7.7, hemoglobin 13.5, hematocrit 40.3, platelets 262. Sodium 136, potassium 4.3, BUN 11, creatinine 0.6, glucose 81. ASSESSMENT AND PLAN: Ms. Mariela Post is a 48-year-old female with stage 3 sacral decubitus ulcer, status post debridement and wound vacuum assisted closure placement POD #1. Plan for wound vacuum assisted closure change on POD #3 as per wound team. The patient has a history of multiple sclerosis, dementia, cerebrovascular accident, seizures. Discussion was done with nursing staff. Agreed with surgical team. Repeat labs. We will follow up. Joanna Cooper MD [facility]
[2018-11-16] MEDS: Pantoprazole 40 mg Susp UD PO SCH (11:00)
[2018-11-16] MEDS: Valproic Acid 250 mg/5 ml UD Cup PO SCH ×2 (11:00→18:02)
[2018-11-16] MEDS: levETIRAcetam 100 mg/ml (5ml) Oral Syringe PO SCH ×3 (11:00→17:52)
[2018-11-16] MEDS: Enoxaparin 40 mg Syringe SC SCH (11:09)
--- NOTE | 2018-11-16 12:11 | CP.PCM.PN ---
Subjective - Date & Time of Evaluation Date of Evaluation: 11/16/18 Time of Evaluation: 12:11 - Subjective Subjective: AFEBRILE POD # 2 S/P I&D SACRAL DECUBITUS ULCERS. ON WOUND VAC. LABS; REVIEWED WOUND CULTURE +VE ACINITOBACTER GERII S -PIP/TAZO, CEFEPIME R- CIPRO Objective - Vital Signs/Intake and Output Vital Signs (last 24 hours): Temp Pulse Resp BP Pulse Ox 97.5 F L 78 18 107/72 99 11/16/18 07:22 11/16/18 07:22 11/16/18 07:22 11/16/18 07:22 11/16/18 07:22 Intake and Output: 11/16/18 11/16/18 06:59 18:59 Intake Total 640 Balance 640 - Medications Medications: Current Medications Acetaminophen (Tylenol 325mg Tab) 650 mg PO Q6H PRN PRN Reason: Pain, Mild (1-3) Last Admin: 11/16/18 00:41 Dose: 650 mg Albuterol/Ipratropium (Duoneb 3 Mg/0.5 Mg (3 Ml) Ud) 3 ml IH RQ6 PRN PRN Reason: Wheezing Baclofen (Lioresal) 10 mg PO QID [facility] Last Admin: 11/16/18 11:00 Dose: 10 mg Celecoxib (Celebrex) 100 mg PO BID PRN PRN Reason: Pain, moderate (4-7) Last Admin: 11/16/18 11:00 Dose: 100 mg Cyproheptadine HCl (Periactin) 4 mg PO DAILY [facility] Last Admin: 11/16/18 11:00 Dose: 4 mg Donepezil HCl (Aricept) 10 mg PO HS [facility] Last Admin: 11/15/18 22:57 Dose: Not Given Enoxaparin Sodium (Lovenox) 40 mg SC DAILY [facility] Last Admin: 11/16/18 11:09 Dose: 40 mg Fenofibrate (Tricor) 145 mg PO QPM [facility] Last Admin: 11/15/18 18:38 Dose: 145 mg Ferrous Sulfate (Feosol) 325 mg PO DAILY [facility] Last Admin: 11/16/18 11:00 Dose: 325 mg Home Med (Interferon Beta-1a [Avonex]) 30 mcg IM QWK [facility] Sodium Chloride (Sodium Chloride 0.9%) 1,000 mls @ 80 mls/hr IV .[id number] [facility] Last Admin: 11/15/18 21:52 Dose: Not Given Piperacillin Sod/Tazobactam Sod (Zosyn 2.25 Gm Iv Premix) 2.25 gm in 50 mls @ 100 mls/hr IVPB Q6H [facility]; Protocol Levetiracetam (Keppra) 500 mg PO TID [facility] Last Admin: 11/16/18 11:00 Dose: 500 mg Pantoprazole Sodium (Protonix Susp) 40 mg PO DAILY [facility] Last Admin: 11/16/18 11:00 Dose: 40 mg Sennosides (Senokot Tab) 8.6 mg PO HS PRN PRN Reason: Constipation Valproate Sodium (Depakene Oral Soln) 125 mg PO BID [facility] Last Admin: 11/16/18 11:00 Dose: 125 mg - Labs Labs: 11/14/18 06:29 11/13/18 00:53 PT 11.9 SECONDS (9.7-12.2) 11/12/18 23:35 INR 1.1 11/12/18 23:35 APTT 30 SECONDS (21-34) 11/12/18 23:35 - Constitutional Appears: No Acute Distress, Chronically Ill - Head Exam Head Exam: NORMAL INSPECTION - Eye Exam Eye Exam: EOMI, PERRL - ENT Exam ENT Exam: Normal Oropharynx - Neck Exam Neck Exam: Normal Inspection - Respiratory Exam Respiratory Exam: Clear to Ausculation Bilateral, NORMAL BREATHING PATTERN - Cardiovascular Exam Cardiovascular Exam: REGULAR RHYTHM, +S1, +S2 - GI/Abdominal Exam GI & Abdominal Exam: Soft, Normal Bowel Sounds - Extremities Exam Extremities Exam: absent: Calf Tenderness, Pedal Edema - Neurological Exam Neurological Exam: Awake, CN II-XII Intact - Psychiatric Exam Psychiatric exam: Normal Mood - Skin Skin Exam: Normal Color, Warm Assessment and Plan (1) Decubitus skin ulcer Status: Acute (2) Altered mental status Status: Acute (3) CVA (cerebral vascular accident) Status: Acute - Assessment and Plan (Free Text) Plan: DC iv ROCEPHIN 1 G EVERY 12 HOURLY 11/13/18. START IV ZOSYN 2.25 GM IV Q 6HRLY 11/16/18 ON WOUND VAC SURGERY ON BOARD ! S/P I & D - 11/14/18. PER CONSULTANTS
[2018-11-16] MEDS: Piperacill/Tazo 2.25gm in Dex 2.25 GM/50 ML BAG IVPB SCH ×2 (13:26→19:47)
[2018-11-16] MEDS: Sodium Chloride 0.9% 1,000 ML IV SCH (21:48)
[2018-11-17] MEDS: Piperacill/Tazo 2.25gm in Dex 2.25 GM/50 ML BAG IVPB SCH ×4 (01:03→19:28)
--- NOTE | 2018-11-17 06:47 | PN ---
DATE: 11/16/2018 SUBJECTIVE: The patient seen and examined at the bedside on 11/16/2018. Daughter, the patient's nurse and the nurse's aide was standing on the bedside. Postoperative day #2, after she underwent drainage of sacral decubitus ulcer, has a wound VAC. Complaining about pain. Wound cultures are positive for Acinetobacter baumannii, getting antibiotics. No fever. No chills. No hematuria or hematochezia. No headache or dizziness. No chest pain or palpitation. PHYSICAL EXAMINATION: VITAL SIGNS: Temperature 97.5, pulse 78, respiratory rate 18, blood pressure 107/72, pulse oximetry 99%. HEENT: Head normocephalic, atraumatic. Eyes, PERRLA. Extraocular movements are intact. Conjunctivae clear. Nose patent. Mucous membranes moist. NECK: Supple. No carotid bruits or thyromegaly. CHEST: Bilaterally symmetrical. HEART: S1, S2 positive. LUNGS: Clear to auscultation. ABDOMEN: Soft. Bowel sounds are present. No organomegaly. EXTREMITIES: No edema. No cyanosis. NEUROLOGIC: The patient is awake, alert. Follows simple commands. MEDICATIONS: Include Tylenol, DuoNeb, Baclofen, Celebrex, Periactin, TriCor, valproate. LABORATORY DATA: White blood cells 11.7, hemoglobin 13.7, hematocrit 40.3, and platelets 262. Sodium 136, potassium 4.3, BUN 11, creatinine 0.6, glucose 81. ASSESSMENT AND PLAN: The patient is a 49-year-old female with multiple medical problems, has a decubitus skin ulcer, came with altered mental status and cerebrovascular accident. According to Infectious Disease, discontinue Rocephin 1 g every 12 hours. Started on Zosyn 2.25 g IV every 6 hours. We will continue wound V.A.C. Surgery and ID is on the board. History of sarcoidosis, MS, dementia, severe degenerative joint disease. Discussion done with the patient's daughter. The patient was complaining about pain in the leg and sacral area. Pain management done. We will followup. Joanna Cooper MD [facility] # [id number]
[2018-11-17 07:21] LABS: HEMOGLOBIN 12.9 g/dL (11.0-16.0); MEAN CELL VOLUME 86.6 fL (81.0-99.0); MEAN CORPUSCULAR HEMOGLOBIN 28.6 pg (27.0-31.0); MEAN PLATELET VOLUME 8.6 fL (7.2-11.7); RBC 4.51 Mil/uL (3.80-5.20); RED CELL DISTRIBUTION WIDTH 14.7 % (11.5-14.5); WHITE BLOOD COUNT 7.3 K/uL (4.8-10.8)
[2018-11-17 07:38] LABS: BLOOD UREA NITROGEN 8 mg/dL (7-17); CALCIUM 9.3 mg/dl (8.6-10.4); GFR NON-AFRICAN AMERICAN > 60
[2018-11-17] MEDS: Pantoprazole 40 mg Susp UD PO SCH (10:10)
[2018-11-17] MEDS: Valproic Acid 250 mg/5 ml UD Cup PO SCH ×2 (10:10→17:47)
[2018-11-17] MEDS: levETIRAcetam 100 mg/ml (5ml) Oral Syringe PO SCH ×3 (10:11→17:47)
[2018-11-17] MEDS: Enoxaparin 40 mg Syringe SC SCH (10:12)
[2018-11-17] MEDS: Sodium Chloride 0.9% 1,000 ML IV SCH (12:12)
--- NOTE | 2018-11-17 17:23 | PN ---
DATE: 11/17/2018 SUBJECTIVE: The patient was seen and examined on the bedside on 11/17/2018. This progress note is for 11/17/2018. Looking comfortable. No fever, no chills, no hematuria, and no hematochezia. No headache or dizziness. No chest pain. No palpitation. PHYSICAL EXAMINATION: VITAL SIGNS: Temperature 98.1, pulse 78, blood pressure 98/66, respiratory rate 20, oxygen saturation 95%. HEENT: Head: Normocephalic, atraumatic. Eyes: PERRLA. Extraocular movements are intact. Conjunctivae clear. Nose patent. Mucous membranes moist. NECK: Supple. No carotid bruits. No JVD or thyromegaly. CHEST: Bilaterally symmetrical. HEART: S1, S2 positive. LUNGS: Clear to auscultation. ABDOMEN: Soft. Bowel sounds present. No organomegaly. EXTREMITIES: No edema. No cyanosis. NEUROLOGIC: The patient is awake, alert. Extremities have contractures. Follows simple orders. MEDICATIONS: Aricept, Celebrex, Depakote, Feosol, Keppra, Losartan, Lovenox, Cipro, heparin, Protonix, Senokot, TriCor, Tylenol, and Zosyn. LABORATORY DATA: White blood cell 7.3, hemoglobin 12.9, hematocrit 39, platelets 272. Sodium 135, potassium 4, BUN 8, creatinine 0.5, glucose 82. ASSESSMENT AND PLAN: Ms. Mariela Post is a 48-year-old lady with hyperchloremia, hypertriglyceridemia, history of multiple sclerosis, sacral decubitus ulcers, came with altered mental status, cerebrovascular accident. According to Infectious Disease discontinue and started Zosyn. Continue wound VAC. ID is on board. Continue antibiotics as per Infectious Disease. Surgery is on the case. Wound care is doing dressing. Repeat labs. The patient is getting pain management. We will follow. Joanna Cooper MD [facility]
--- NOTE | 2018-11-17 22:26 | CP.PCM.PN ---
Subjective - Date & Time of Evaluation Date of Evaluation: 11/17/18 Time of Evaluation: 22:26 - Subjective Subjective: AFEBRILE POD # 3 VS BP 98/70 LOW AWAKE BUT CONFUSED S/P I&D SACRAL DECUBITUS ULCERS. ON WOUND VAC. ON IV ABX. LABS; REVIEWED WOUND CULTURE +VE ACINITOBACTER BAUMANI S -PIP/TAZO, CEFEPIME R- CIPRO Objective - Vital Signs/Intake and Output Vital Signs (last 24 hours): Temp Pulse Resp BP Pulse Ox 97.8 F 89 20 98/60 L 98 11/17/18 16:00 11/17/18 16:00 11/17/18 16:00 11/17/18 16:00 11/17/18 16:00 - Medications Medications: Current Medications Acetaminophen (Tylenol 325mg Tab) 650 mg PO Q6H PRN PRN Reason: Pain, Mild (1-3) Last Admin: 11/16/18 17:53 Dose: 650 mg Albuterol/Ipratropium (Duoneb 3 Mg/0.5 Mg (3 Ml) Ud) 3 ml IH RQ6 PRN PRN Reason: Wheezing Baclofen (Lioresal) 10 mg PO QID [facility] Last Admin: 11/17/18 22:09 Dose: 10 mg Celecoxib (Celebrex) 100 mg PO BID PRN PRN Reason: Pain, moderate (4-7) Last Admin: 11/17/18 10:11 Dose: 100 mg Cyproheptadine HCl (Periactin) 4 mg PO DAILY [facility] Last Admin: 11/17/18 10:11 Dose: 4 mg Donepezil HCl (Aricept) 10 mg PO HS [facility] Last Admin: 11/17/18 22:09 Dose: 10 mg Enoxaparin Sodium (Lovenox) 40 mg SC DAILY [facility] Last Admin: 11/17/18 10:12 Dose: 40 mg Fenofibrate (Tricor) 145 mg PO QPM [facility] Last Admin: 11/17/18 17:47 Dose: 145 mg Ferrous Sulfate (Feosol) 325 mg PO DAILY [facility] Last Admin: 11/17/18 10:11 Dose: 325 mg Home Med (Interferon Beta-1a [Avonex]) 30 mcg IM QWK [facility] Piperacillin Sod/Tazobactam Sod (Zosyn 2.25 Gm Iv Premix) 2.25 gm in 50 mls @ 100 mls/hr IVPB Q6H [facility]; Protocol Last Admin: 11/17/18 19:28 Dose: 100 mls/hr Levetiracetam (Keppra) 500 mg PO TID [facility] Last Admin: 11/17/18 17:47 Dose: 500 mg Pantoprazole Sodium (Protonix Susp) 40 mg PO DAILY [facility] Last Admin: 11/17/18 10:10 Dose: 40 mg Sennosides (Senokot Tab) 8.6 mg PO HS PRN PRN Reason: Constipation Valproate Sodium (Depakene Oral Soln) 125 mg PO BID [facility] Last Admin: 11/17/18 17:47 Dose: 125 mg - Labs Labs: 11/17/18 06:55 11/17/18 06:55 PT 11.9 SECONDS (9.7-12.2) 11/12/18 23:35 INR 1.1 11/12/18 23:35 APTT 30 SECONDS (21-34) 11/12/18 23:35 - Constitutional Appears: No Acute Distress, Cachectic, Chronically Ill - Head Exam Head Exam: NORMAL INSPECTION - Eye Exam Eye Exam: EOMI, PERRL - ENT Exam ENT Exam: Normal Oropharynx - Neck Exam Neck Exam: Normal Inspection - Respiratory Exam Respiratory Exam: Clear to Ausculation Bilateral, NORMAL BREATHING PATTERN - Cardiovascular Exam Cardiovascular Exam: REGULAR RHYTHM, +S1, +S2 - GI/Abdominal Exam GI & Abdominal Exam: Soft, Normal Bowel Sounds - Extremities Exam Extremities Exam: absent: Calf Tenderness, Pedal Edema (BILATERAL CONTRACTED LOWER eXTREMITIES.) - Neurological Exam Neurological Exam: Awake, CN II-XII Intact - Psychiatric Exam Psychiatric exam: Normal Mood - Skin Skin Exam: Normal Color, Warm Assessment and Plan (1) Decubitus skin ulcer Status: Acute (2) Altered mental status Status: Acute (3) CVA (cerebral vascular accident) Status: Acute - Assessment and Plan (Free Text) Plan: CONTINUE IV ZOSYN 2.25 GM IV Q 6HRLY 11/16/18 X 14 DAYS ON WOUND VAC , LWC PER SURGERY SURGERY ON BOARD ! S/P I & D - 11/14/18. PER CONSULTANTS
[2018-11-18] MEDS: Piperacill/Tazo 2.25gm in Dex 2.25 GM/50 ML BAG IVPB SCH ×4 (01:00→19:44)
[2018-11-18] MEDS: Sodium Chloride 0.9% 1,000 ML IV SCH ×2 (02:33→19:43)
[2018-11-18 07:10] LABS: BASO # 0.1 K/uL (0.0-0.2); BASO % 0.8 % (0.0-2.0); EOS # 0.4 K/uL (0.0-0.7); EOS % 5.2 % (0.0-4.0); HEMOGLOBIN 13.5 g/dL (11.0-16.0); LYMPH # 2.8 K/uL (1.0-4.3); LYMPH % 37.7 % (20.0-40.0); MEAN CELL VOLUME 87.1 fL (81.0-99.0); MEAN CORPUSCULAR HGB CONC 33.3 g/dL (33.0-37.0); MEAN PLATELET VOLUME 8.6 fL (7.2-11.7); MONO # 0.5 K/uL (0.0-0.8); MONO % 6.6 % (0.0-10.0); NEUT # 3.6 K/uL (1.8-7.0); NEUT % 49.7 % (50.0-75.0); NRBC % 0.1 % (0.0-2.0); RBC 4.67 Mil/uL (3.80-5.20); RED CELL DISTRIBUTION WIDTH 14.9 % (11.5-14.5); WHITE BLOOD COUNT 7.4 K/uL (4.8-10.8)
[2018-11-18 07:50] LABS: ALB/GLOB RATIO 0.9 (1.0-2.1); ALBUMIN 3.3 g/dL (3.5-5.0); ALT/SGPT < 6 U/L (9-52); AST/SGOT 18 U/L (14-36); BLOOD UREA NITROGEN 7 mg/dL (7-17); CALCIUM 9.3 mg/dl (8.6-10.4); GFR NON-AFRICAN AMERICAN > 60
[2018-11-18] MEDS: Valproic Acid 250 mg/5 ml UD Cup PO SCH ×2 (11:28→17:44)
[2018-11-18] MEDS: Pantoprazole 40 mg Susp UD PO SCH (11:28)
[2018-11-18] MEDS: levETIRAcetam 100 mg/ml (5ml) Oral Syringe PO SCH ×3 (11:28→17:44)
[2018-11-18] MEDS: Enoxaparin 40 mg Syringe SC SCH (11:29)
[2018-11-19] MEDS: Piperacill/Tazo 2.25gm in Dex 2.25 GM/50 ML BAG IVPB SCH ×4 (01:13→18:30)
--- NOTE | 2018-11-19 08:18 | DS ---
The patient was admitted on 11/12/2018 and discharged on 11/18/2018 to subacute rehab. CHIEF COMPLAINT: Sacral decubitus ulcers. HISTORY OF PRESENT ILLNESS: The patient is a 48-year-old female, resident of [facility], brought by the ambulance from the skilled nursing as per the patient's request that the patient has sacral decubitus ulcers. We admitted the patient and put to surgeon Dr. Ray. He did debridement and put a wound VAC. ID was called. Dr. Kush Freeman gave her IV antibiotics. The patient improved. Daughter does not want the patient go back to [facility]. grey roll worker has set up with another facility as per the patient's request. The patient will continue wound VAC there. PAST MEDICAL HISTORY: Dementia, arthritis, asthma, COPD, CVA, multiple sclerosis, seizures, convulsions, history of diverticulosis, emphysema, fibromyalgia. FAMILY HISTORY: Father and mother, noncontributory. HABITS: History of tobacco abuse, but no smoking. Has history of alcohol abuse, but not using. History of cocaine abuse, not using now. REVIEW OF SYSTEMS: The patient was seen at the bedside. Looking comfortable. No fever. No chills. No hematuria. No hematochezia. No headache. No dizziness. No chest pain. No palpitation. The patient is a very poor historian. PHYSICAL EXAMINATION: VITAL SIGNS: Temperature 98.1, pulse 67, blood pressure 100/72, respiratory rate 20, oxygen saturation 98. HEENT: Head is normocephalic and atraumatic. Eyes PERRLA. Extraocular muscles are intact. Conjunctivae clear. Nose patent. Mucous membranes moist. NECK: Supple. No carotid bruit. No JVD or thyromegaly. CHEST: Bilaterally symmetrical. HEART: S1 and S2 positive. LUNGS: Clear to auscultation. ABDOMEN: Soft. Bowel sounds present. No organomegaly. EXTREMITIES: Lower extremities heave contracture. No edema. No cyanosis. NEUROLOGIC: The patient is awake and alert. Follows simple commands. MEDICATIONS: Aricept, Celebrex, Depakote, ferrous sulfate, Keppra, baclofen, Lovenox, cyproheptadine, Protonix, Senokot, TriCor, Tylenol, Zosyn. LABORATORY DATA: White blood cells 7.4, hemoglobin 13.5, hematocrit 40.6, platelets 247. Sodium 136, potassium 4.7, BUN 7, creatinine 0.5, glucose is 75. Valproic acid is 18.9. ASSESSMENT AND PLAN: The patient is a 48-year-old lady with hyperchloremia, hypertriglyceridemia, history of multiple sclerosis, history of seizures, history of decubitus ulcers. Surgery was done. Postoperative day #4. On wound vacuum-assisted closure. On intravenous antibiotics. Wound culture positive Acinetobacter baumannii. That is sensitive to Cipro, sensitive to cefepime. Continue antibiotics as per Infectious Disease. History of altered mental status, improved. History of cerebrovascular accident. Continue Zosyn every 6 hourly for at least 14 days. Continue wound vacuum-assisted closure. Length of time discussion done with the patient's daughter multiple times. Gastrointestinal and deep venous thrombosis prophylaxis. Repeat labs. We will follow. Joanna Cooper MD [facility]
--- NOTE | 2018-11-19 11:30 | CP.PCM.PN ---
Subjective - Date & Time of Evaluation Date of Evaluation: 11/19/18 Time of Evaluation: 11:29 - Subjective Subjective: AFEBRILE POD # 4 VS BP BETTER TODAY AWAKE BUT CONFUSED S/P I&D SACRAL DECUBITUS ULCERS. ON WOUND VAC. ON IV ABX. Objective - Vital Signs/Intake and Output Vital Signs (last 24 hours): Temp Pulse Resp BP Pulse Ox 97.9 F 82 20 112/74 98 11/19/18 07:53 11/19/18 07:53 11/19/18 07:53 11/19/18 07:53 11/19/18 07:53 Intake and Output: 11/19/18 11/19/18 06:59 18:59 Intake Total 1660 Output Total 303 Balance 1357 - Medications Medications: Current Medications Acetaminophen (Tylenol 325mg Tab) 650 mg PO Q6H PRN PRN Reason: Pain, Mild (1-3) Last Admin: 11/16/18 17:53 Dose: 650 mg Albuterol/Ipratropium (Duoneb 3 Mg/0.5 Mg (3 Ml) Ud) 3 ml IH RQ6 PRN PRN Reason: Wheezing Baclofen (Lioresal) 10 mg PO QID [facility] Last Admin: 11/18/18 21:59 Dose: 10 mg Celecoxib (Celebrex) 100 mg PO BID PRN PRN Reason: Pain, moderate (4-7) Last Admin: 11/18/18 18:53 Dose: 100 mg Cyproheptadine HCl (Periactin) 4 mg PO DAILY [facility] Last Admin: 11/18/18 11:28 Dose: 4 mg Donepezil HCl (Aricept) 10 mg PO HS [facility] Last Admin: 11/17/18 22:09 Dose: 10 mg Enoxaparin Sodium (Lovenox) 40 mg SC DAILY [facility] Last Admin: 11/18/18 11:29 Dose: 40 mg Fenofibrate (Tricor) 145 mg PO QPM [facility] Last Admin: 11/18/18 17:44 Dose: 145 mg Ferrous Sulfate (Feosol) 325 mg PO DAILY [facility] Last Admin: 11/18/18 11:30 Dose: 325 mg Home Med (Interferon Beta-1a [Avonex]) 30 mcg IM QWK [facility] Piperacillin Sod/Tazobactam Sod (Zosyn 2.25 Gm Iv Premix) 2.25 gm in 50 mls @ 100 mls/hr IVPB Q6H [facility]; Protocol Last Admin: 11/19/18 06:59 Dose: 100 mls/hr Levetiracetam (Keppra) 500 mg PO TID [facility] Last Admin: 11/18/18 17:44 Dose: 500 mg Pantoprazole Sodium (Protonix Susp) 40 mg PO DAILY [facility] Last Admin: 11/18/18 11:28 Dose: 40 mg Sennosides (Senokot Tab) 8.6 mg PO HS PRN PRN Reason: Constipation Valproate Sodium (Depakene Oral Soln) 125 mg PO BID [facility] Last Admin: 11/18/18 17:44 Dose: 125 mg - Labs Labs: 11/18/18 07:02 11/18/18 07:02 PT 11.9 SECONDS (9.7-12.2) 11/12/18 23:35 INR 1.1 11/12/18 23:35 APTT 30 SECONDS (21-34) 11/12/18 23:35 - Constitutional Appears: No Acute Distress, Cachectic, Chronically Ill - Head Exam Head Exam: NORMOCEPHALIC - Eye Exam Eye Exam: EOMI, PERRL - ENT Exam ENT Exam: Normal Oropharynx - Neck Exam Neck Exam: Normal Inspection - Respiratory Exam Respiratory Exam: Clear to Ausculation Bilateral, NORMAL BREATHING PATTERN - Cardiovascular Exam Cardiovascular Exam: REGULAR RHYTHM, +S1, +S2 - GI/Abdominal Exam GI & Abdominal Exam: Soft, Normal Bowel Sounds - Extremities Exam Extremities Exam: absent: Calf Tenderness, Pedal Edema Additional comments: CONTRACTED B/L LE. - Neurological Exam Neurological Exam: Altered, Awake - Psychiatric Exam Psychiatric exam: Normal Mood - Skin Skin Exam: Normal Color, Warm Assessment and Plan (1) Decubitus skin ulcer Status: Acute (2) Altered mental status Status: Acute (3) CVA (cerebral vascular accident) Status: Acute - Assessment and Plan (Free Text) Plan: CONTINUE IV ZOSYN 2.25 GM IV Q 6HRLY 11/16/18 X 14 DAYS ON WOUND VAC , LWC PER SURGERY SURGERY ON BOARD ! S/P I & D - 11/14/18. PER CONSULTANTS
[2018-11-19] MEDS: Valproic Acid 250 mg/5 ml UD Cup PO SCH ×2 (11:54→17:22)
[2018-11-19] MEDS: Enoxaparin 40 mg Syringe SC SCH (12:00)
[2018-11-19] MEDS: levETIRAcetam 100 mg/ml (5ml) Oral Syringe PO SCH ×3 (12:01→17:26)
[2018-11-19] MEDS: Pantoprazole 40 mg Susp UD PO SCH (12:01)
[2018-11-20] MEDS: Piperacill/Tazo 2.25gm in Dex 2.25 GM/50 ML BAG IVPB SCH ×4 (01:58→19:50)
[2018-11-20] MEDS: Valproic Acid 250 mg/5 ml UD Cup PO SCH ×2 (10:07→17:37)
[2018-11-20] MEDS: Enoxaparin 40 mg Syringe SC SCH (10:09)
[2018-11-20] MEDS: Pantoprazole 40 mg Susp UD PO SCH (10:17)
[2018-11-20] MEDS: levETIRAcetam 100 mg/ml (5ml) Oral Syringe PO SCH ×3 (10:17→17:36)
[2018-11-21] MEDS: Piperacill/Tazo 2.25gm in Dex 2.25 GM/50 ML BAG IVPB SCH ×4 (01:31→19:17)
--- NOTE | 2018-11-21 07:01 | PN ---
DATE: 11/19/2018 SUBJECTIVE: The patient is a 48-year-old female. The patient is seen and examined at the bedside on 11/19/2018. Getting antibiotics. Having wound VAC. Getting pain management. Tolerating food very well. No fever. No chills. No hematuria or hematochezia. No headache or dizziness. No chest pain. No palpitation. PHYSICAL EXAMINATION: VITAL SIGNS: Temperature 97.9, pulse 68, respiratory rate 20, blood pressure 112/74, and pulse oximetry 98%. HEENT: Head: Normocephalic and atraumatic. Eyes: PERRLA. Extraocular muscles are intact. Conjunctivae clear. Nose patent. Mucous membranes moist. NECK: Supple. No carotid bruits. No JVD or thyromegaly. CHEST: Bilaterally symmetrical. HEART: S1 and S2 positive. LUNGS: Clear to auscultation. ABDOMEN: Soft. Bowel sounds present. No organomegaly. EXTREMITIES: No edema. No cyanosis. NEUROLOGIC: The patient is awake and alert. Moving all four extremities. No focal deficits except lower extremities have contractures. MEDICATIONS: Tylenol, DuoNeb, baclofen, Celebrex, Periactin, Lovenox, TriCor, iron sulfate, Keppra, and valproic acid. LABORATORY DATA: White blood cells 7.4, hemoglobin 13.5, hematocrit 40.6, platelets 245. Sodium 136, potassium 4.4, BUN 7, creatinine 0.5, and glucose 75. ASSESSMENT AND PLAN: The patient is a 48 -year-old lady with sacral decubitus ulcers, has a wound vacuum-assisted closure, status post debridement, altered mental status, history of cerebrovascular accident, history of multiple sclerosis, has lower extremity contractures. Getting antibiotics. Having wound care. Repeat labs. We will follow up. Joanna Cooper MD [facility]
--- NOTE | 2018-11-21 07:03 | PN ---
DATE: 11/20/2018 SUBJECTIVE: The patient seen and examined on the bedside on 11/20/2018, looking comfortable. No fever. No chills. No headache. No dizziness. No chest pain. No palpitation. No nausea, vomiting, diarrhea. Today is POD #5. Awake and alert. On wound VAC, on IV antibiotics. No event happened overnight. PHYSICAL EXAMINATION: VITAL SIGNS: Temperature 98, pulse 87, blood pressure 97/54, respiratory rate 20. HEENT: Head: Normocephalic, atraumatic. Eyes: PERRLA, extraocular muscles intact, conjunctivae clear. Nose patent. Mucous membrane moist. NECK: Supple. No carotid bruit. No JVD, thyromegaly. CHEST: Bilaterally symmetrical. HEART: S1, S2 positive. LUNGS: Clear to auscultation. ABDOMEN: Soft. Bowel sounds positive. No organomegaly. EXTREMITIES: Lower extremities have contractures. MEDICATIONS: Aricept, Celebrex, valproate, ferrous sulfate, Keppra, Baclofen, Lovenox, Periactin, Protonix, Senokot, TriCor, Tylenol. LABORATORY DATA: White blood cell 7.4, hemoglobin 13.5, hematocrit 40.6, platelets 247. Sodium 133, potassium 4.4, BUN 7, creatinine 0.5. ASSESSMENT AND PLAN: The patient is a 48-year-old lady with multiple medical problems, hyperchloremia, hypertriglyceridemia, history of multiple sclerosis, decubitus ulcers sacral, got surgical debridement and wound vacuum-assisted closure, history of seizures, dementia, contractures of the lower extremities, on intravenous antibiotics as per Infectious Disease. Cultures are positive. Continue Zosyn as per Infectious Disease for 40 days. Gastrointestinal and deep venous thrombosis prophylaxis. Repeat labs. We will follow up. Joanna Cooper MD
[2018-11-21] MEDS: Enoxaparin 40 mg Syringe SC SCH (11:00)
[2018-11-21] MEDS: Pantoprazole 40 mg Susp UD PO SCH (11:00)
[2018-11-21] MEDS: Valproic Acid 250 mg/5 ml UD Cup PO SCH ×2 (11:01→17:04)
[2018-11-21] MEDS: levETIRAcetam 100 mg/ml (5ml) Oral Syringe PO SCH ×3 (11:04→16:59)
[2018-11-21] MEDS ORDERED: Pneumococcal 23-Valent Vaccine IM ONE (12:15)
--- NOTE | 2018-11-21 16:13 | CP.PCM.PN ---
Subjective - Date & Time of Evaluation Date of Evaluation: 11/21/18 Time of Evaluation: 16:08 - Subjective Subjective: Surgery Progress Note- Dr. Ray Patient seen and examined at bedside. Wound vac changed at bedside this AM. Wound base clean, with no purulent discharge or erythema. Patient is pleasantly confused. Denies fevers, chills, chest pain. b/l LE contracted. Objective - Vital Signs/Intake and Output Vital Signs (last 24 hours): Temp Pulse Resp BP Pulse Ox 97.7 F 95 H 20 118/76 94 L 11/21/18 00:00 11/21/18 00:00 11/21/18 00:00 11/21/18 00:00 11/21/18 00:00 Intake and Output: 11/21/18 11/21/18 06:59 18:59 Intake Total 270 Output Total 200 Balance 70 - Medications Medications: Current Medications Acetaminophen (Tylenol 325mg Tab) 650 mg PO Q6H PRN PRN Reason: Pain, Mild (1-3) Last Admin: 11/16/18 17:53 Dose: 650 mg Albuterol/Ipratropium (Duoneb 3 Mg/0.5 Mg (3 Ml) Ud) 3 ml IH RQ6 PRN PRN Reason: Wheezing Baclofen (Lioresal) 10 mg PO QID [facility] Last Admin: 11/21/18 14:06 Dose: 10 mg Celecoxib (Celebrex) 100 mg PO BID PRN PRN Reason: Pain, moderate (4-7) Last Admin: 11/21/18 14:06 Dose: 100 mg Cyproheptadine HCl (Periactin) 4 mg PO DAILY [facility] Last Admin: 11/21/18 11:01 Dose: 4 mg Donepezil HCl (Aricept) 10 mg PO HS [facility] Last Admin: 11/20/18 21:48 Dose: 10 mg Enoxaparin Sodium (Lovenox) 40 mg SC DAILY [facility] Last Admin: 11/21/18 11:00 Dose: 40 mg Fenofibrate (Tricor) 145 mg PO QPM [facility] Last Admin: 11/20/18 17:36 Dose: 145 mg Ferrous Sulfate (Feosol) 325 mg PO DAILY [facility] Last Admin: 11/21/18 11:00 Dose: 325 mg Home Med (Interferon Beta-1a [Avonex]) 30 mcg IM QWK [facility] Piperacillin Sod/Tazobactam Sod (Zosyn 2.25 Gm Iv Premix) 2.25 gm in 50 mls @ 100 mls/hr IVPB Q6H [facility]; Protocol Last Admin: 11/21/18 14:06 Dose: 100 mls/hr Levetiracetam (Keppra) 500 mg PO TID [facility] Last Admin: 11/21/18 14:06 Dose: 500 mg Pantoprazole Sodium (Protonix Susp) 40 mg PO DAILY [facility] Last Admin: 11/21/18 11:00 Dose: 40 mg Sennosides (Senokot Tab) 8.6 mg PO HS PRN PRN Reason: Constipation Valproate Sodium (Depakene Oral Soln) 125 mg PO BID [facility] Last Admin: 11/21/18 11:01 Dose: 125 mg - Labs Labs: 11/18/18 07:02 11/18/18 07:02 PT 11.9 SECONDS (9.7-12.2) 11/12/18 23:35 INR 1.1 11/12/18 23:35 APTT 30 SECONDS (21-34) 11/12/18 23:35 - Constitutional Appears: Non-toxic, No Acute Distress - Head Exam Head Exam: ATRAUMATIC - Eye Exam Eye Exam: EOMI. absent: Scleral icterus - ENT Exam ENT Exam: Mucous Membranes Moist - Respiratory Exam Respiratory Exam: NORMAL BREATHING PATTERN. absent: Accessory Muscle Use, Respiratory Distress - Cardiovascular Exam Cardiovascular Exam: absent: Bradycardia, Tachycardia - GI/Abdominal Exam GI & Abdominal Exam: Soft. absent: Distended, Firm, Guarding, Rigid, Tenderness - Rectal Exam Additional comments: Good tone, no blood Wound vac changed - Extremities Exam Extremities Exam: absent: Calf Tenderness - Neurological Exam Neurological Exam: Alert, Awake. absent: Oriented x3 - Psychiatric Exam Psychiatric exam: Normal Affect - Skin Skin Exam: Intact, Warm Assessment and Plan - Assessment and Plan (Free Text) Assessment: 48F s/p debridement of sacral pressure ulcer, stage III POD # 7 Plan: bedside woundvac change q3-4 days continue medical management will continue to follow while in house for wound vac changes discussed w/ Dr. Ray surgical attending PGY2
[2018-11-22] MEDS: Piperacill/Tazo 2.25gm in Dex 2.25 GM/50 ML BAG IVPB SCH ×4 (00:57→18:51)
[2018-11-22] MEDS: levETIRAcetam 100 mg/ml (5ml) Oral Syringe PO SCH ×3 (11:03→18:50)
[2018-11-22] MEDS: Valproic Acid 250 mg/5 ml UD Cup PO SCH (11:03)
[2018-11-22] MEDS: Pantoprazole 40 mg Susp UD PO SCH (11:04)
[2018-11-22] MEDS: Enoxaparin 40 mg Syringe SC SCH (11:05)
--- NOTE | 2018-11-22 15:38 | CP.PCM.PN ---
Subjective - Date & Time of Evaluation Date of Evaluation: 11/22/18 Time of Evaluation: 15:38 - Subjective Subjective: AFEBRILE POD # 7 VS BP BETTER TODAY AWAKE BUT CONFUSED PATIENT IS INCONTINENT OF URINE. PRESENTLY MENSTRUATING S/P I&D SACRAL DECUBITUS ULCERS. ON WOUND VAC change Wednesday and Wednesday. ON IV ABX. CASE DISCUSSED WITH THE STAFF. wOUND CULTURES POSITIVE FOR aCINETOBACTER S-mERREM pATIENT WILL NEED TO BE OFF VALPROIC ACID TO START mERREM. wILL DISCUSS WITH PMD FOR CHANGE OFF VALPROIC ACID TO START mERREM. Objective - Vital Signs/Intake and Output Vital Signs (last 24 hours): Temp Pulse Resp BP Pulse Ox 98 F 112 H 20 108/76 95 11/22/18 07:00 11/22/18 07:00 11/22/18 07:00 11/22/18 07:00 11/22/18 07:00 Intake and Output: 11/22/18 11/22/18 06:59 18:59 Intake Total 400 100 Output Total 200 500 Balance 200 -400 - Medications Medications: Current Medications Acetaminophen (Tylenol 325mg Tab) 650 mg PO Q6H PRN PRN Reason: Pain, Mild (1-3) Last Admin: 11/16/18 17:53 Dose: 650 mg Baclofen (Lioresal) 10 mg PO QID [facility] Last Admin: 11/22/18 13:59 Dose: 10 mg Celecoxib (Celebrex) 100 mg PO BID PRN PRN Reason: Pain, moderate (4-7) Last Admin: 11/21/18 14:06 Dose: 100 mg Cyproheptadine HCl (Periactin) 4 mg PO DAILY [facility] Last Admin: 11/22/18 11:04 Dose: 4 mg Donepezil HCl (Aricept) 10 mg PO HS [facility] Last Admin: 11/21/18 21:50 Dose: 10 mg Enoxaparin Sodium (Lovenox) 40 mg SC DAILY [facility] Last Admin: 11/22/18 11:05 Dose: 40 mg Fenofibrate (Tricor) 145 mg PO QPM [facility] Last Admin: 11/21/18 17:00 Dose: 145 mg Ferrous Sulfate (Feosol) 325 mg PO DAILY [facility] Last Admin: 11/22/18 11:04 Dose: 325 mg Home Med (Interferon Beta-1a [Avonex]) 30 mcg IM QWK [facility] Piperacillin Sod/Tazobactam Sod (Zosyn 2.25 Gm Iv Premix) 2.25 gm in 50 mls @ 100 mls/hr IVPB Q6H [facility]; Protocol Last Admin: 11/22/18 13:58 Dose: 100 mls/hr Levetiracetam (Keppra) 500 mg PO TID [facility] Last Admin: 11/22/18 13:58 Dose: 500 mg Pantoprazole Sodium (Protonix Susp) 40 mg PO DAILY [facility] Last Admin: 11/22/18 11:04 Dose: 40 mg Sennosides (Senokot Tab) 8.6 mg PO HS PRN PRN Reason: Constipation Valproate Sodium (Depakene Oral Soln) 125 mg PO BID [facility] Last Admin: 11/22/18 11:03 Dose: 125 mg - Labs Labs: 11/18/18 07:02 11/18/18 07:02 PT 11.9 SECONDS (9.7-12.2) 11/12/18 23:35 INR 1.1 11/12/18 23:35 APTT 30 SECONDS (21-34) 11/12/18 23:35 - Constitutional Appears: No Acute Distress - Head Exam Head Exam: NORMAL INSPECTION - Eye Exam Eye Exam: EOMI, PERRL - ENT Exam ENT Exam: Normal Oropharynx - Neck Exam Neck Exam: Normal Inspection - Respiratory Exam Respiratory Exam: Clear to Ausculation Bilateral - Cardiovascular Exam Cardiovascular Exam: Tachycardia, REGULAR RHYTHM, +S1, +S2 - GI/Abdominal Exam GI & Abdominal Exam: Soft, Normal Bowel Sounds - Neurological Exam Neurological Exam: Altered, Awake, CN II-XII Intact - Psychiatric Exam Psychiatric exam: Normal Mood - Skin Skin Exam: Normal Color, Warm Assessment and Plan (1) Decubitus skin ulcer Status: Acute (2) Altered mental status Status: Acute (3) CVA (cerebral vascular accident) Status: Acute - Assessment and Plan (Free Text) Plan: as discussed above. Patient to start Merrem after the discontinuation off valproic acid for her seizures. CONTINUE IV ZOSYN 2.25 GM IV Q 6HRLY 11/16/18. ON WOUND VAC. [facility] PER SURGERY SURGERY ON BOARD ! S/P I & D - 11/14/18. PER CONSULTANTS
--- NOTE | 2018-11-22 17:33 | CON ---
DATE: 11/22/2018 CHIEF COMPLAINT: Evaluation of medication change. This patient is on Depakote and needs to be on antibiotics, so therefore, we called a consult. HISTORY OF PRESENT ILLNESS: This is a 48-year-old woman with a history of multiple sclerosis, demyelinating disease, cognitive impairment, spastic lower extremity weakness, deconditioned state, history of seizure disorder, asthma and COPD, is being treated for a sacral decubitus ulcer stage 3 and has also had debridement, is on antibiotics as per ID, but need to stop Depakote since there is interaction with antibiotics which is okay with us. No recent seizures. She follows simple commands. She is lying in a retracted flexed position. PAST MEDICAL HISTORY: As above. ALLERGIES; NO KNOWN DRUG ALLERGIES. SOCIAL HISTORY: No illicit drug use, smoking, or EtOH abuse. REVIEW OF SYSTEMS: A 14-point review of systems negative except in the HPI. FAMILY HISTORY: Noncontributory. LABORATORY DATA: No new labs done today. PHYSICAL EXAMINATION: GENERAL: The patient is sitting up in bed, no acute distress. VITAL SIGNS: Temperature 98, pulse rate of 89, blood pressure 108/76, respiratory rate of 20, oxygen saturation 95% on room air. HEENT: Atraumatic, normocephalic. PERRLA. Extraocular muscles are intact. NECK: Supple. No JVD. No adenopathy noted. LUNGS: Clear to auscultation. No adventitious sounds. HEART: S1 and S2. Normal rate and rhythm. No murmurs, rubs, or gallops. ABDOMEN: Soft, nontender, nondistended. Bowel sounds present. EXTREMITIES: No clubbing, no cyanosis. Peripheral pulses 2+ felt bilaterally. NEUROLOGY: The patient is alert and oriented to self. Confused at times. Has evidence of cognitive impairment on her exam. Speech is fluent without any errors; hypophonic, but no aphasia noted. Cranial nerves II through XII intact. Motor exam: Increased tone throughout, spastic in the lower extremities and upper extremities. Very deconditioned, debilitating. Cachectic. Moves all extremities equally. DTRs are 1+ throughout. Plantars are downgoing. Coordination: [id number] intact. No dysmetria noted. Gait is deferred for now. Normal movement of the lower extremities. IMPRESSION: This is a 48-year-old woman with history of multiple sclerosis in the past, not on any disease-modifying agent at this present time, history of seizures, on Keppra 500 mg p.o. b.i.d., was on Depakote; cognitive impairment moderate type, is here for a stage III decubitus ulcer status post debridement, is called to see if Depakote can be stopped given that she is on antibiotics which interacts and its okay to stop the Depakote and discontinue the Keppra 500 mg p.o. b.i.d. for seizure prophylaxis and subacute rehab and antibiotics. Thank you for this consult. Chetan Grover MD
--- NOTE | 2018-11-22 20:35 | PN ---
DATE: 11/21/2018 SUBJECTIVE: The patient was seen and examined at the bedside on 11/21/2018. Looking comfortable. No fever. No chills. No hematuria or hematochezia. Wound VAC changed at her bedside this a.m. by the wound care team. Wound base clean with no purulent discharge or erythema. The patient is pleasantly confused. No headache. No dizziness. PHYSICAL EXAMINATION: VITAL SIGNS: Temperature 97.7, pulse 95, respiratory rate 20, blood pressure 118/70, pulse oximetry 94%. HEENT: Head; normocephalic and atraumatic. Eyes; PERRLA. Extraocular muscles intact. Conjunctivae are clear. Nose is patent. Mucous membranes are moist. NECK: Supple. No carotid bruits. No JVD. No thyromegaly. CHEST: Bilaterally symmetrical. HEART: S1, S2 positive. LUNGS: Clear to auscultation. ABDOMEN: Soft. Bowel sounds present. No organomegaly. EXTREMITIES: No edema. No cyanosis. NEUROLOGICAL: The patient is awake and alert. Moving all four extremities. No focal deficits. MEDICATIONS: Tylenol, DuoNeb, Baclofen, Celebrex, Aricept, Tricor, ferrous sulfate, Keppra, Protonix. LABORATORY DATA: White blood cell 7.4, hemoglobin 16.5, hematocrit 40.6, platelets 247. Sodium 136, potassium 4.4, BUN 7, creatinine 0.4, glucose 75. ASSESSMENT AND PLAN: The patient is a 48-year-old female came with history of multiple sclerosis, has decubitus wound debridement of sacral ulcer at the time of Wound VAC repair. Wound VAC was changed on the bedside today. Looks healthy as per wound team. History of hypertension and lower extremities contractures, dementia, muscle contractures, degenerative joint disease. Getting Lovenox for deep venous thrombosis prophylaxis. Hypercholesterolemia, getting Tricor. Getting iron. Keppra to prevent seizures. Protonix, gastrointestinal prophylaxis. Getting Senokot for constipation. Repeat labs. Continue antibiotics. We will follow. Joanna Cooper MD [facility]
--- NOTE | 2018-11-23 00:08 | PN ---
DATE: 11/22/2018 SUBJECTIVE: The patient is a 48-year-old female. The patient was seen and examined at the bedside on 11/22/2018. Looking comfortable. No change in the status. ID is on the case. According to ID, the patient needs Merrem but that was not good with valproic acid, then we called neurology consult. Dr. Grover discontinued the valproic acid due to interaction, and now Dr. Kush Freeman will start the Merrem tomorrow and then we will plan further. PHYSICAL EXAMINATION: VITAL SIGNS: Temperature 98, pulse 112, respiratory rate 20, blood pressure 176/95. HEENT: Head normocephalic, atraumatic. Eyes PERRLA. Extraocular muscles are intact. Conjunctivae clear. Nose patent. Mucous membranes moist. NECK: Supple. No carotid bruit, JVD, or thyromegaly. CHEST: Bilaterally symmetrical. HEART: S1 and S2 positive. LUNGS: Clear to auscultation. ABDOMEN: Soft. Bowel sounds are present. No organomegaly. EXTREMITIES: No edema, no cyanosis. NEUROLOGIC: The patient is awake, alert. Moving upper extremities. Lower extremities are contracted. MEDICATIONS: Cipro, heparin, Aricept, Lovenox, TriCor, ferrous sulfate, Keppra, Protonix, Senokot, Depakote. LABORATORY DATA: White blood cells 7.4, hemoglobin 13.5, hematocrit 40.6, platelets 247. Sodium 136, potassium 4.4, BUN 7, creatinine 0.5, glucose 75. ASSESSMENT AND PLAN: Ms. Mariela Post is a 48-year-old male who has a decubitus skin ulcer, especially sacral area, altered mental status, cerebrovascular accident, history of multiple sclerosis. Neurologist is on the case, seen by Dr. Chetan Grover. History of seizures, on Keppra, Depakote. Cognitive impairment moderate type. Stage III decubitus ulcers. Depakote can be stopped given that she is on antibiotic which interact, and it is okay to stop the Depakote and continue Keppra p.o. b.i.d. for seizure precautions. Repeat labs. We will follow up. Joanna Cooper MD
[2018-11-23] MEDS: Piperacill/Tazo 2.25gm in Dex 2.25 GM/50 ML BAG IVPB SCH ×2 (00:32→06:34)
[2018-11-23] MEDS: Meropenem 500 MG in Sodium Chloride 0.9% 100 ML IVPB SCH ×2 (10:30→19:50)
[2018-11-23] MEDS: Enoxaparin 40 mg Syringe SC SCH (10:54)
[2018-11-23] MEDS: Pantoprazole 40 mg Susp UD PO SCH (10:55)
[2018-11-23] MEDS: levETIRAcetam 100 mg/ml (5ml) Oral Syringe PO SCH ×3 (10:55→18:14)
--- NOTE | 2018-11-23 11:37 | CP.PCM.PN ---
Subjective - Date & Time of Evaluation Date of Evaluation: 11/23/18 Time of Evaluation: 11:37 - Subjective Subjective: AFEBRILE POD # 8 VSS AWAKE BUT CONFUSED PATIENT IS INCONTINENT OF URINE. PRESENTLY MENSTRUATING S/P I&D SACRAL DECUBITUS ULCERS. ON WOUND VAC changed Wednesday and Wednesday. ON IV ABX. CASE DISCUSSED WITH THE STAFF. wOUND CULTURES POSITIVE FOR aCINETOBACTER S-mERREM STARTED ON iv mERREM FIRST DOSE-TOLERATED IT 11/23/18 OFF VALPROIC ACID, ON kEPPRA. Objective - Vital Signs/Intake and Output Vital Signs (last 24 hours): Temp Pulse Resp BP Pulse Ox 98.6 F 91 H 20 97/66 L 96 11/23/18 08:03 11/23/18 08:03 11/23/18 08:03 11/23/18 08:03 11/23/18 08:03 Intake and Output: 11/23/18 11/23/18 06:59 18:59 Intake Total 230 Output Total 2 Balance 228 - Medications Medications: Current Medications Acetaminophen (Tylenol 325mg Tab) 650 mg PO Q6H PRN PRN Reason: Pain, Mild (1-3) Last Admin: 11/16/18 17:53 Dose: 650 mg Baclofen (Lioresal) 10 mg PO QID [facility] Last Admin: 11/23/18 10:54 Dose: Not Given Celecoxib (Celebrex) 100 mg PO BID PRN PRN Reason: Pain, moderate (4-7) Last Admin: 11/21/18 14:06 Dose: 100 mg Cyproheptadine HCl (Periactin) 4 mg PO DAILY [facility] Last Admin: 11/23/18 10:54 Dose: Not Given Donepezil HCl (Aricept) 10 mg PO HS [facility] Last Admin: 11/22/18 21:42 Dose: 10 mg Enoxaparin Sodium (Lovenox) 40 mg SC DAILY [facility] Last Admin: 11/23/18 10:54 Dose: 40 mg Fenofibrate (Tricor) 145 mg PO QPM [facility] Last Admin: 11/22/18 18:51 Dose: 145 mg Ferrous Sulfate (Feosol) 325 mg PO DAILY [facility] Last Admin: 11/23/18 10:55 Dose: 325 mg Home Med (Interferon Beta-1a [Avonex]) 30 mcg IM QWK [facility] Meropenem 500 mg/ Sodium (Chloride) 100 mls @ 100 mls/hr IVPB Q8H [facility]; Protocol Last Admin: 11/23/18 10:30 Dose: 100 mls/hr Levetiracetam (Keppra) 500 mg PO TID [facility] Last Admin: 11/23/18 10:55 Dose: 500 mg Pantoprazole Sodium (Protonix Susp) 40 mg PO DAILY [facility] Last Admin: 11/23/18 10:55 Dose: 40 mg Sennosides (Senokot Tab) 8.6 mg PO HS PRN PRN Reason: Constipation - Labs Labs: 11/18/18 07:02 11/18/18 07:02 PT 11.9 SECONDS (9.7-12.2) 11/12/18 23:35 INR 1.1 11/12/18 23:35 APTT 30 SECONDS (21-34) 11/12/18 23:35 - Constitutional Appears: No Acute Distress, Confused - Head Exam Head Exam: NORMAL INSPECTION - Eye Exam Eye Exam: EOMI, PERRL - ENT Exam ENT Exam: Normal Oropharynx - Neck Exam Neck Exam: Normal Inspection - Respiratory Exam Respiratory Exam: Clear to Ausculation Bilateral, NORMAL BREATHING PATTERN - Cardiovascular Exam Cardiovascular Exam: REGULAR RHYTHM, +S1, +S2 - Extremities Exam Extremities Exam: absent: Calf Tenderness, Pedal Edema (BILATERAL LOWER EXTREMITIES CONTRACTED.) - Neurological Exam Neurological Exam: Altered, Awake, CN II-XII Intact - Psychiatric Exam Psychiatric exam: Normal Mood - Skin Skin Exam: Normal Color, Warm - Additional Findings Additional findings: patient has a wound VAC for her sacral decubitus ulcers which is changing Wednesday and Wednesday. Assessment and Plan (1) Decubitus skin ulcer Status: Acute (2) Altered mental status Status: Acute (3) CVA (cerebral vascular accident) Status: Acute - Assessment and Plan (Free Text) Plan: PATIENT STARTED ON iv MERREM 500 EVERY 8 HOURLY 11/23/18 AND TOLERATED IT. 0FF IV ZOSYN 2.25 GM IV Q 6HRLY 11/16/18. OFF VALPROIC ACID-ON kEPPRA NOW ON WOUND VAC CHANGED MWF. [facility] PER SURGERY WILL DISCUSS WITH SURGERY ABOUT THE CONDITION OF THE SACRAL DECUBITUS ULCERS/ AND DURATION OF ABX NEEDED. SURGERY ON BOARD ! S/P I & D - 11/14/18. addendum;;;; DISCUSSED WITH RESIDENT. PT HAS A 3X3CM WOUND S/P DEBRIDEMENT - STAGE 3. PT INCONTINENENTOF STOOLS AND FEACES CONTAMINATING THE WOUND.? POOR HEALING/AND CONTAMINATION. WILL GIVE X 2 WEEKS OF IV MERREM 500MG IVPB [id number] F/U BY REEVAL BY PMD /SURGERY AND REEVAL OF ABX WHILE AT [facility]-. WILL F/U PT WHILE IN HOSPITAL. CASE DISCUSSED WITH DISEASE CONTROL INSPECTOR MS KRISH PERLA.
--- NOTE | 2018-11-23 21:35 | PN ---
DATE: 11/23/2018 SUBJECTIVE: The patient is a 48-year-old female. The patient was seen and examined at the bedside on 11/23/2018. Looking comfortable, no change of status, POD #8. The patient is awake but confused, answering questions. No fever, no chills, no hematuria, no hematochezia, no headache, no dizziness. PHYSICAL EXAMINATION: VITAL SIGNS: Temperature 98.6, pulse 91, respirations 20, blood pressure 97/53, and pulse oximetry 96%. HEENT: Head: Normocephalic and atraumatic. Eyes: PERRLA. Extraocular muscles are intact. Conjunctivae are clear. Nose is patent. NECK: Supple. No carotid bruits, no JVD or thyromegaly. CHEST: Bilaterally symmetrical. HEART: S1 and S2 positive. LUNGS: Clear to auscultation. ABDOMEN: Soft. Bowel sounds present. No organomegaly. EXTREMITIES: Upper extremities, no edema and no cyanosis. Lower extremity has contractures. NEUROLOGIC: The patient is awake and alert, but confused. MEDICATIONS: Tylenol, baclofen, Celebrex, cyproheptadine, Aricept, Lovenox, TriCor, iron, meropenem, Keppra, Protonix, Senokot. LABORATORY DATA: White blood cell 7.4, hemoglobin 13.5, hematocrit 40.2, platelets 247, sodium 136, potassium 4.4, BUN 7, creatinine 0.5, and glucose 75. ASSESSMENT AND PLAN: Ms. Mariela Post is a 48-year-old lady, came with sacral decubitus ulcer, today is POD #8, has a wound vacuum-assisted closure, altered mental status but awake and alert, history of cerebrovascular accident, seizures, multiple sclerosis. The patient started on IV Merrem 500 mg every 8 hours on 11/23/2018 and tolerated. Continue antibiotics as per Infectious Disease, off the Zosyn, off of valproic acid, on Keppra for seizure precautions, Neurology and ID is on the case. GI and DVT prophylaxis. Repeat labs. The patient had 3 x 3 cm wound as per debridement day #3. The patient is incontinent of the stool. As the patient now is menstruating contaminating the wound, poor healing and contamination. We will give 2 weeks of IV Merrem as per ID. Waiting for SHANDRA placement. We will follow up. Joanna Cooper MD
[2018-11-24] MEDS: Meropenem 500 MG in Sodium Chloride 0.9% 100 ML IVPB SCH ×2 (02:49→11:22)
[2018-11-24] MEDS: Pantoprazole 40 mg Susp UD PO SCH (11:22)
[2018-11-24] MEDS: Enoxaparin 40 mg Syringe SC SCH (11:23)
[2018-11-24] MEDS: levETIRAcetam 100 mg/ml (5ml) Oral Syringe PO SCH ×3 (11:36→17:16)
[2018-11-24 16:50] VITALS: BP 92/68; PULSE 101; RESP 100; TEMP 98.2; O2SAT 20
--- NOTE | 2018-11-24 17:44 | CP.PCM.PN ---
Subjective - Date & Time of Evaluation Date of Evaluation: 11/24/18 Time of Evaluation: 17:44 - Subjective Subjective: alert, awake, follows commands, no sob or distress. Objective - Vital Signs/Intake and Output Vital Signs (last 24 hours): Temp Pulse Resp BP Pulse Ox 98.2 F 101 H 100 H 92/68 L 20 L 11/24/18 16:00 11/24/18 16:00 11/24/18 16:00 11/24/18 16:00 11/24/18 16:00 Intake and Output: 11/24/18 11/24/18 06:59 18:59 Intake Total 350 Balance 350 - Medications Medications: Current Medications Acetaminophen (Tylenol 325mg Tab) 650 mg PO Q6H PRN PRN Reason: Pain, Mild (1-3) Last Admin: 11/16/18 17:53 Dose: 650 mg Baclofen (Lioresal) 10 mg PO QID [facility] Last Admin: 11/24/18 17:18 Dose: 10 mg Celecoxib (Celebrex) 100 mg PO BID PRN PRN Reason: Pain, moderate (4-7) Last Admin: 11/21/18 14:06 Dose: 100 mg Cyproheptadine HCl (Periactin) 4 mg PO DAILY [facility] Last Admin: 11/24/18 11:23 Dose: 4 mg Donepezil HCl (Aricept) 10 mg PO HS [facility] Last Admin: 11/23/18 22:00 Dose: 10 mg Enoxaparin Sodium (Lovenox) 40 mg SC DAILY [facility] Last Admin: 11/24/18 11:23 Dose: 40 mg Fenofibrate (Tricor) 145 mg PO QPM [facility] Last Admin: 11/24/18 17:18 Dose: 145 mg Ferrous Sulfate (Feosol) 325 mg PO DAILY [facility] Last Admin: 11/24/18 11:22 Dose: 325 mg Home Med (Interferon Beta-1a [Avonex]) 30 mcg IM QWK [facility] Meropenem 500 mg/ Sodium (Chloride) 100 mls @ 100 mls/hr IVPB Q8H [facility]; Protocol Last Admin: 11/24/18 11:22 Dose: 100 mls/hr Levetiracetam (Keppra) 500 mg PO TID [facility] Last Admin: 11/24/18 17:16 Dose: 500 mg Pantoprazole Sodium (Protonix Susp) 40 mg PO DAILY [facility] Last Admin: 11/24/18 11:22 Dose: 40 mg Sennosides (Senokot Tab) 8.6 mg PO HS PRN PRN Reason: Constipation - Labs Labs: 11/18/18 07:02 11/18/18 07:02 PT 11.9 SECONDS (9.7-12.2) 11/12/18 23:35 INR 1.1 11/12/18 23:35 APTT 30 SECONDS (21-34) 11/12/18 23:35 Assessment and Plan - Assessment and Plan (Free Text) Assessment: 48 year old female admitted with sacral ulcer, seen and examined. Awake, no acute pain or distress, has wound vac attached.Discussed with DR Cooper, plan to discharge to rehab today for 2 more weeks of iv meropenum and wound vac to continue. to be followed up by surgery.
--- NOTE | 2018-11-24 21:33 | PN ---
DATE: 11/24/2018 SUBJECTIVE: The patient was seen and examined at the bedside on 11/24/2018. The patient is looking thin and no change of status over the night. No fever. No chills. No hematuria or hematochezia. No headache or dizziness. No chest pain or palpitations. PHYSICAL EXAMINATION: VITAL SIGNS: Temperature 98.3, pulse 89, blood pressure 101/61, respiratory rate 20. HEENT: Atraumatic, normocephalic. Eyes: PERRLA. Extraocular muscles intact. Conjunctivae clear. Nose patent. Mucosal membranes moist. NECK: Supple. No carotid bruit. No JVD or thyromegaly. CHEST: Bilaterally symmetrical. HEART: S1 and S2 positive. LUNGS: Clear to auscultation. ABDOMEN: Soft. Bowel sounds present. No organomegaly. EXTREMITIES: Upper extremities, no edema, no cyanosis. Lower extremities, contractures. NEUROLOGICAL: The patient is awake and alert but confused. MEDICATIONS: Aricept, Celebrex, ferrous sulfate, Keppra, baclofen, Lovenox, cyproheptadine, Protonix, Senokot, Tri-Cor, Tylenol. LABS: White blood cell count 7.4, hemoglobin 13.5, hematocrit 40.6, and platelets 247. Sodium 136, potassium 4.4, BUN 7, creatinine 0.6, glucose 75. ASSESSMENT AND PLAN: Ms. Sejal Sierra is a 48-year-old female with hyperchloremia, hypertriglyceridemia, history of multiple sclerosis, has a sacral decubitus ulcer stage 3, status post debridement, have wound VAC put by the Wound Team, changed last week. They are changing that three times a week, getting IV Merrem, first dose given yesterday, tolerated very well. Off the valproic acid, on Keppra. Seen by the neurologist and Infectious Disease for infection of the lower extremity. Gastrointestinal and deep venous thrombosis prophylaxis. Repeat labs. We will follow. Joanna Cooper MD
--- NOTE | 2018-11-29 04:31 | DS ---
HISTORY OF PRESENT ILLNESS AND HOSPITAL COURSE: The patient is a 48-year-old female. The patient was seen and examined at the bedside on 11/24/2018. The patient was admitted in [facility] on 11/12/2018, discharged on 11/24/2018. The patient has sacral decubitus ulcer. We gave IV antibiotics per consult with Dr. Dieudonne aRy, surgeon. He did the debridement and put a wound VAC. The wound VAC was changed two to three times a week. Drainage was good. The patient got IV antibiotics as per Dr. Kush Freeman. Actually, we did discharge summary on 11/18/2018, but after that the patient lost her [facility] place and there was problem with giving IV antibiotics according to ID. She was waiting for sensitivity. As soon as the sensitivity came, then we discharged the patient with antibiotics as per Infectious Disease to subacute rehab. I do not put that to subacute rehab. Some other doctor will take care of that. Daughter was at the bedside. I did even familial leave paper for the daughter for detail. For the patient's physical examination, see my progress note of 11/24/2018. Prescription medicines were given. The patient was discharged with Michelle Caldera, nurse practitioner. The patient was awake, alert. Follows simple commands. No shortness of breath. Not in distress. Wound VAC was working very well. The patient will get in rehabilitation two weeks of intravenous antibiotic meropenem and wound VAC to continue. The patient will do followup with the surgeon. Joanna Cooper MD
== END 2018-11-24 20:05 | DRG 263 ==
LOC: C.ER 21:57 → C.9E 23:38 → C.5S 11-13 01:22 → OBSVTOIN 11-14 18:30 → UNDODISIN 11-14 19:00 → C.3T 11-17 08:31
PROVIDERS: ADMIT Internal Medicine; ATTEND Internal Medicine
PROC: 0JB70ZZ Excision of Back Subcutaneous Tissue and Fascia, Open Approach (ICD-10-PCS; principal; 2018-11-14 14:45)
DX: L89.153 Pressure ulcer of sacral region, stage 3 (principal); G35 Multiple sclerosis; J43.9 Emphysema, unspecified; E87.8 Other disorders of electrolyte and fluid balance, not elsewhere classified; D86.9 Sarcoidosis, unspecified; R32 Unspecified urinary incontinence; I10 Essential (primary) hypertension; G40.909 Epilepsy, unspecified, not intractable, without status epilepticus; G30.9 Alzheimer's disease, unspecified; F02.80 Dementia in other diseases classified elsewhere, unspecified severity, without behavioral disturbance, psychotic disturbance, mood disturbance, and anxiety; L89.321 Pressure ulcer of left buttock, stage 1; L89.311 Pressure ulcer of right buttock, stage 1; B96.89 Other specified bacterial agents as the cause of diseases classified elsewhere; M79.7 Fibromyalgia; M62.462 Contracture of muscle, left lower leg; M62.461 Contracture of muscle, right lower leg; K59.00 Constipation, unspecified; R41.82 Altered mental status, unspecified; E78.1 Pure hyperglyceridemia; E78.00 Pure hypercholesterolemia, unspecified; I69.398 Other sequelae of cerebral infarction; Z87.891 Personal history of nicotine dependence; Z74.01 Bed confinement status